=== PATIENT | male | born 1940 | race Two or more races ===

== ENCOUNTER 2016-05-18 13:18 | Outpatient (CLI) | payer MEDICARE ==
[~2016-05-18 13:18] MED LIST: ATOR10TA PO; BLOO-129 IN; FERR1TAB44 PO; FOLI1TAB16 PO; INSU100V13 SQ; LEVO75TA7 PO; LIRA0.6P2 SQ; TAMS0.4C34 PO
== END 2016-05-18 23:59 | disposition home or self-care (01) ==
LOC: WOU 13:18
PROVIDERS: ATTEND Podiatrist Foot & Ankle Surgery
DX: E11.621 Type 2 diabetes mellitus with foot ulcer (principal); L97.422 Non-pressure chronic ulcer of left heel and midfoot with fat layer exposed; Z89.439 Acquired absence of unspecified foot; R26.89 Other abnormalities of gait and mobility; E11.42 Type 2 diabetes mellitus with diabetic polyneuropathy; Z85.828 Personal history of other malignant neoplasm of skin; I10 Essential (primary) hypertension; E11.51 Type 2 diabetes mellitus with diabetic peripheral angiopathy without gangrene; Z79.4 Long term (current) use of insulin
CPT/HCPCS: 11042; A6209; A6402

== ENCOUNTER 2016-05-25 14:00 | Outpatient (CLI) | payer MEDICARE | END 2016-05-25 23:59 | disposition home or self-care (01) | LOC: WOU 14:00 | PROVIDERS: ATTEND Podiatrist Foot & Ankle Surgery | DX: E11.621 Type 2 diabetes mellitus with foot ulcer (principal); I96 Gangrene, not elsewhere classified; L97.421 Non-pressure chronic ulcer of left heel and midfoot limited to breakdown of skin; E11.42 Type 2 diabetes mellitus with diabetic polyneuropathy; Z89.432 Acquired absence of left foot; L08.9 Local infection of the skin and subcutaneous tissue, unspecified; Z85.828 Personal history of other malignant neoplasm of skin; E11.51 Type 2 diabetes mellitus with diabetic peripheral angiopathy without gangrene | CPT/HCPCS: 11042; A6209; A6402 ==

== ENCOUNTER 2016-06-08 11:02 | Outpatient (CLI) | payer MEDICARE ==
[~2016-06-08 11:02] MED LIST changes: -INSU100V13 SQ; +INSU100V7 SQ
== END 2016-06-08 23:59 | disposition home or self-care (01) ==
LOC: WOU 11:02
PROVIDERS: ATTEND Podiatrist Foot & Ankle Surgery
DX: E11.621 Type 2 diabetes mellitus with foot ulcer (principal); L97.422 Non-pressure chronic ulcer of left heel and midfoot with fat layer exposed; Z89.439 Acquired absence of unspecified foot; R26.89 Other abnormalities of gait and mobility; B35.1 Tinea unguium; E11.42 Type 2 diabetes mellitus with diabetic polyneuropathy; E11.51 Type 2 diabetes mellitus with diabetic peripheral angiopathy without gangrene; I25.10 Atherosclerotic heart disease of native coronary artery without angina pectoris; Z95.1 Presence of aortocoronary bypass graft
CPT/HCPCS: 11042; A6402

== ENCOUNTER 2016-06-15 11:05 | Outpatient (CLI) | payer MEDICARE | END 2016-06-15 23:59 | disposition home or self-care (01) | LOC: WOU 11:05 | PROVIDERS: ATTEND Podiatrist Foot & Ankle Surgery | DX: E11.621 Type 2 diabetes mellitus with foot ulcer (principal); L97.422 Non-pressure chronic ulcer of left heel and midfoot with fat layer exposed; Z89.439 Acquired absence of unspecified foot; R26.89 Other abnormalities of gait and mobility; B35.1 Tinea unguium; E11.42 Type 2 diabetes mellitus with diabetic polyneuropathy; I10 Essential (primary) hypertension; Z98.62 Peripheral vascular angioplasty status; I25.10 Atherosclerotic heart disease of native coronary artery without angina pectoris; Z95.1 Presence of aortocoronary bypass graft; Z79.4 Long term (current) use of insulin | CPT/HCPCS: 11042; A6402 ==

== ENCOUNTER 2016-06-22 10:45 | Outpatient (CLI) | payer MEDICARE | END 2016-06-22 23:59 | disposition home or self-care (01) | LOC: WOU 10:45 | PROVIDERS: ATTEND Podiatrist Foot & Ankle Surgery | DX: E11.621 Type 2 diabetes mellitus with foot ulcer (principal); L97.422 Non-pressure chronic ulcer of left heel and midfoot with fat layer exposed; R26.89 Other abnormalities of gait and mobility; B35.1 Tinea unguium; E11.42 Type 2 diabetes mellitus with diabetic polyneuropathy; Z89.422 Acquired absence of other left toe(s); Z89.421 Acquired absence of other right toe(s); I10 Essential (primary) hypertension; Z83.3 Family history of diabetes mellitus; Z82.3 Family history of stroke; I25.10 Atherosclerotic heart disease of native coronary artery without angina pectoris; Z95.1 Presence of aortocoronary bypass graft; Z98.62 Peripheral vascular angioplasty status; Z79.4 Long term (current) use of insulin | CPT/HCPCS: 11042; A6402 ==

== ENCOUNTER 2016-06-29 10:59 | Outpatient (CLI) | payer MEDICARE | END 2016-06-29 23:59 | disposition home or self-care (01) | LOC: WOU 10:59 | PROVIDERS: ATTEND Podiatrist Foot & Ankle Surgery | DX: E11.621 Type 2 diabetes mellitus with foot ulcer (principal); L97.421 Non-pressure chronic ulcer of left heel and midfoot limited to breakdown of skin; E11.42 Type 2 diabetes mellitus with diabetic polyneuropathy; Z89.432 Acquired absence of left foot; E11.51 Type 2 diabetes mellitus with diabetic peripheral angiopathy without gangrene; I25.10 Atherosclerotic heart disease of native coronary artery without angina pectoris; I10 Essential (primary) hypertension; Z95.1 Presence of aortocoronary bypass graft; Z85.828 Personal history of other malignant neoplasm of skin; Z89.421 Acquired absence of other right toe(s); Z79.4 Long term (current) use of insulin | CPT/HCPCS: 11042; A6402 ==

== ENCOUNTER 2016-07-06 11:02 | Outpatient (CLI) | payer MEDICARE | END 2016-07-06 23:59 | disposition home health service (06) | LOC: WOU 11:02 | PROVIDERS: ATTEND Podiatrist Foot & Ankle Surgery | DX: E11.621 Type 2 diabetes mellitus with foot ulcer (principal); L97.529 Non-pressure chronic ulcer of other part of left foot with unspecified severity; L03.116 Cellulitis of left lower limb; E11.52 Type 2 diabetes mellitus with diabetic peripheral angiopathy with gangrene; I25.10 Atherosclerotic heart disease of native coronary artery without angina pectoris; I10 Essential (primary) hypertension; Z95.1 Presence of aortocoronary bypass graft; Z79.4 Long term (current) use of insulin; E11.42 Type 2 diabetes mellitus with diabetic polyneuropathy; Z89.432 Acquired absence of left foot; Z85.828 Personal history of other malignant neoplasm of skin | CPT/HCPCS: 11042; 87070; 87075; 87077; 87186 ×2; A6402; A6207 ==

== ENCOUNTER 2016-07-13 11:29 | Outpatient (CLI) | payer MEDICARE | END 2016-07-13 23:59 | disposition home health service (06) | LOC: WOU 11:29 | PROVIDERS: ATTEND Podiatrist Foot & Ankle Surgery | DX: E11.621 Type 2 diabetes mellitus with foot ulcer (principal); L97.521 Non-pressure chronic ulcer of other part of left foot limited to breakdown of skin; L03.116 Cellulitis of left lower limb; B96.1 Klebsiella pneumoniae [K. pneumoniae] as the cause of diseases classified elsewhere; B95.61 Methicillin susceptible Staphylococcus aureus infection as the cause of diseases classified elsewhere; B96.89 Other specified bacterial agents as the cause of diseases classified elsewhere; Z16.11 Resistance to penicillins; Z16.19 Resistance to other specified beta lactam antibiotics; E11.51 Type 2 diabetes mellitus with diabetic peripheral angiopathy without gangrene; I25.10 Atherosclerotic heart disease of native coronary artery without angina pectoris; I10 Essential (primary) hypertension; Z95.1 Presence of aortocoronary bypass graft; Z89.432 Acquired absence of left foot; Z83.3 Family history of diabetes mellitus; Z82.3 Family history of stroke; Z79.4 Long term (current) use of insulin | CPT/HCPCS: 11042; A6402 ==

== ENCOUNTER 2016-07-20 10:57 | Outpatient (CLI) | payer MEDICARE | END 2016-07-20 23:59 | disposition home health service (06) | LOC: WOU 10:57 | PROVIDERS: ATTEND Podiatrist Foot & Ankle Surgery | DX: E11.621 Type 2 diabetes mellitus with foot ulcer (principal); L97.424 Non-pressure chronic ulcer of left heel and midfoot with necrosis of bone; R26.89 Other abnormalities of gait and mobility; Z89.439 Acquired absence of unspecified foot; E11.42 Type 2 diabetes mellitus with diabetic polyneuropathy; I25.10 Atherosclerotic heart disease of native coronary artery without angina pectoris; I10 Essential (primary) hypertension; Z95.1 Presence of aortocoronary bypass graft; Z85.828 Personal history of other malignant neoplasm of skin; Z79.4 Long term (current) use of insulin | CPT/HCPCS: 11044; 87070; A6402 ×2 ==

== ENCOUNTER 2016-07-27 11:00 | Outpatient (CLI) | payer MEDICARE | END 2016-07-27 23:59 | disposition home health service (06) | LOC: WOU 11:00 | PROVIDERS: ATTEND Podiatrist Foot & Ankle Surgery | DX: E11.621 Type 2 diabetes mellitus with foot ulcer (principal); L97.523 Non-pressure chronic ulcer of other part of left foot with necrosis of muscle; E11.622 Type 2 diabetes mellitus with other skin ulcer; L97.329 Non-pressure chronic ulcer of left ankle with unspecified severity; L89.621 Pressure ulcer of left heel, stage 1; Z89.439 Acquired absence of unspecified foot; R26.89 Other abnormalities of gait and mobility; E11.42 Type 2 diabetes mellitus with diabetic polyneuropathy; I25.10 Atherosclerotic heart disease of native coronary artery without angina pectoris; I10 Essential (primary) hypertension; Z85.828 Personal history of other malignant neoplasm of skin; Z95.1 Presence of aortocoronary bypass graft; Z79.4 Long term (current) use of insulin | CPT/HCPCS: 11043; A6402 ==

== ENCOUNTER 2016-08-03 10:55 | Outpatient (CLI) | payer MEDICARE | END 2016-08-03 23:59 | disposition home health service (06) | LOC: WOU 10:55 | PROVIDERS: ATTEND Podiatrist Foot & Ankle Surgery | DX: E11.621 Type 2 diabetes mellitus with foot ulcer (principal); L97.523 Non-pressure chronic ulcer of other part of left foot with necrosis of muscle; L03.116 Cellulitis of left lower limb; E11.42 Type 2 diabetes mellitus with diabetic polyneuropathy; R26.9 Unspecified abnormalities of gait and mobility; L89.621 Pressure ulcer of left heel, stage 1; E11.622 Type 2 diabetes mellitus with other skin ulcer; L97.329 Non-pressure chronic ulcer of left ankle with unspecified severity; Z89.432 Acquired absence of left foot; I25.10 Atherosclerotic heart disease of native coronary artery without angina pectoris; Z95.1 Presence of aortocoronary bypass graft; E11.51 Type 2 diabetes mellitus with diabetic peripheral angiopathy without gangrene; E78.5 Hyperlipidemia, unspecified; Z98.49 Cataract extraction status, unspecified eye; Z85.828 Personal history of other malignant neoplasm of skin; Z79.4 Long term (current) use of insulin | CPT/HCPCS: 11043; A6402 ==

== ENCOUNTER 2016-08-10 10:50 | Outpatient (CLI) | payer MEDICARE | END 2016-08-10 23:59 | disposition home or self-care (01) | LOC: WOU 10:50 | PROVIDERS: ATTEND Podiatrist Foot & Ankle Surgery | DX: L03.116 Cellulitis of left lower limb (principal); E11.621 Type 2 diabetes mellitus with foot ulcer; L97.422 Non-pressure chronic ulcer of left heel and midfoot with fat layer exposed; L97.521 Non-pressure chronic ulcer of other part of left foot limited to breakdown of skin; L89.621 Pressure ulcer of left heel, stage 1; E11.42 Type 2 diabetes mellitus with diabetic polyneuropathy; R26.9 Unspecified abnormalities of gait and mobility; M21.962 Unspecified acquired deformity of left lower leg; Z79.4 Long term (current) use of insulin; Z79.899 Other long term (current) drug therapy | CPT/HCPCS: 11042; 11044; 87070-TC; 87186-TC; A6402 ==

== ENCOUNTER 2016-08-17 10:50 | Outpatient (CLI) | payer MEDICARE | END 2016-08-17 23:59 | disposition home health service (06) | LOC: WOU 10:50 | PROVIDERS: ATTEND Podiatrist Foot & Ankle Surgery | DX: E11.621 Type 2 diabetes mellitus with foot ulcer (principal); L97.421 Non-pressure chronic ulcer of left heel and midfoot limited to breakdown of skin; L97.524 Non-pressure chronic ulcer of other part of left foot with necrosis of bone; E11.42 Type 2 diabetes mellitus with diabetic polyneuropathy; L03.116 Cellulitis of left lower limb; R26.9 Unspecified abnormalities of gait and mobility; Z79.4 Long term (current) use of insulin; Z79.899 Other long term (current) drug therapy | CPT/HCPCS: 11042; 11044; A6402 ==

== ENCOUNTER 2016-08-24 11:06 | Outpatient (CLI) | payer MEDICARE | END 2016-08-24 23:59 | disposition home health service (06) | LOC: WOU 11:06 | PROVIDERS: ATTEND Podiatrist Foot & Ankle Surgery | DX: E11.621 Type 2 diabetes mellitus with foot ulcer (principal); L03.116 Cellulitis of left lower limb; B95.7 Other staphylococcus as the cause of diseases classified elsewhere; E11.42 Type 2 diabetes mellitus with diabetic polyneuropathy; Z89.432 Acquired absence of left foot; L89.621 Pressure ulcer of left heel, stage 1; Z98.62 Peripheral vascular angioplasty status; E11.51 Type 2 diabetes mellitus with diabetic peripheral angiopathy without gangrene; R26.9 Unspecified abnormalities of gait and mobility; L97.524 Non-pressure chronic ulcer of other part of left foot with necrosis of bone | CPT/HCPCS: 11044; 11045; A6402 ==

== ENCOUNTER 2016-09-07 11:33 | Outpatient (CLI) | payer MEDICARE | END 2016-09-07 23:59 | disposition home health service (06) | LOC: WOU 11:33 | PROVIDERS: ATTEND Podiatrist Foot & Ankle Surgery | DX: E11.621 Type 2 diabetes mellitus with foot ulcer (principal); L97.524 Non-pressure chronic ulcer of other part of left foot with necrosis of bone; L89.621 Pressure ulcer of left heel, stage 1; E11.52 Type 2 diabetes mellitus with diabetic peripheral angiopathy with gangrene; E11.42 Type 2 diabetes mellitus with diabetic polyneuropathy; Z83.3 Family history of diabetes mellitus; Z85.828 Personal history of other malignant neoplasm of skin; I25.10 Atherosclerotic heart disease of native coronary artery without angina pectoris; I10 Essential (primary) hypertension; Z95.1 Presence of aortocoronary bypass graft; Z89.422 Acquired absence of other left toe(s); Z89.421 Acquired absence of other right toe(s); I70.345 Atherosclerosis of unspecified type of bypass graft(s) of the left leg with ulceration of other part of foot; I70.92 Chronic total occlusion of artery of the extremities | CPT/HCPCS: 11044; 87070; 87077; 87186; 93926; A6402; 93925-TC ==

== ENCOUNTER 2016-09-17 11:50 | Outpatient (CLI) | payer MEDICARE | END 2016-09-17 23:59 | disposition home health service (06) | LOC: WOU 11:50 | PROVIDERS: ATTEND Podiatrist Foot & Ankle Surgery | DX: E11.621 Type 2 diabetes mellitus with foot ulcer (principal); L97.523 Non-pressure chronic ulcer of other part of left foot with necrosis of muscle; E11.52 Type 2 diabetes mellitus with diabetic peripheral angiopathy with gangrene; L89.621 Pressure ulcer of left heel, stage 1; E11.42 Type 2 diabetes mellitus with diabetic polyneuropathy; Z89.432 Acquired absence of left foot; T87.89 Other complications of amputation stump; Z79.4 Long term (current) use of insulin | CPT/HCPCS: 11043; A6402 ==

== ENCOUNTER 2016-09-28 11:50 | Outpatient (CLI) | payer MEDICARE | END 2016-09-28 23:59 | disposition home health service (06) | LOC: WOU 11:50 | PROVIDERS: ATTEND Podiatrist Foot & Ankle Surgery | DX: L97.524 Non-pressure chronic ulcer of other part of left foot with necrosis of bone (principal); E11.52 Type 2 diabetes mellitus with diabetic peripheral angiopathy with gangrene; Z79.01 Long term (current) use of anticoagulants; E11.40 Type 2 diabetes mellitus with diabetic neuropathy, unspecified; Z89.432 Acquired absence of left foot; R26.9 Unspecified abnormalities of gait and mobility; E11.69 Type 2 diabetes mellitus with other specified complication; M86.672 Other chronic osteomyelitis, left ankle and foot; L89.621 Pressure ulcer of left heel, stage 1; I74.3 Embolism and thrombosis of arteries of the lower extremities | CPT/HCPCS: 11042; 11044; 11047; A6402 ==

== ENCOUNTER 2016-09-29 13:11 | Outpatient (CLI) | payer MEDICARE | END 2016-09-29 23:59 | disposition home health service (06) | LOC: WOU 13:11 | PROVIDERS: ATTEND Specialist | DX: L89.894 Pressure ulcer of other site, stage 4 (principal); E11.52 Type 2 diabetes mellitus with diabetic peripheral angiopathy with gangrene; E11.42 Type 2 diabetes mellitus with diabetic polyneuropathy; Z89.432 Acquired absence of left foot; B35.1 Tinea unguium; E11.69 Type 2 diabetes mellitus with other specified complication; M86.371 Chronic multifocal osteomyelitis, right ankle and foot; L03.116 Cellulitis of left lower limb; R26.89 Other abnormalities of gait and mobility; L97.422 Non-pressure chronic ulcer of left heel and midfoot with fat layer exposed; Z79.4 Long term (current) use of insulin; Z79.899 Other long term (current) drug therapy | CPT/HCPCS: 73718-TC; A6402; G0463 ==

== ENCOUNTER 2016-10-12 13:46 | Outpatient (CLI) | payer MEDICARE | END 2016-10-12 23:59 | disposition home or self-care (01) | LOC: WOU 13:46 | PROVIDERS: ATTEND Internal Medicine Infectious Disease | DX: E11.51 Type 2 diabetes mellitus with diabetic peripheral angiopathy without gangrene (principal); E11.69 Type 2 diabetes mellitus with other specified complication; M86.172 Other acute osteomyelitis, left ankle and foot; B95.7 Other staphylococcus as the cause of diseases classified elsewhere; M86.672 Other chronic osteomyelitis, left ankle and foot; T87.44 Infection of amputation stump, left lower extremity; I25.2 Old myocardial infarction; Z85.828 Personal history of other malignant neoplasm of skin; I25.10 Atherosclerotic heart disease of native coronary artery without angina pectoris; Z95.1 Presence of aortocoronary bypass graft; Z89.432 Acquired absence of left foot | CPT/HCPCS: A6402; G0463 ==

== ENCOUNTER 2016-10-13 14:15 | Outpatient (CLI) | payer MEDICARE | END 2016-10-13 23:59 | disposition home or self-care (01) | LOC: WOU 14:15 | PROVIDERS: ATTEND Internal Medicine Infectious Disease | DX: E11.69 Type 2 diabetes mellitus with other specified complication (principal); M86.8X7 Other osteomyelitis, ankle and foot; I25.10 Atherosclerotic heart disease of native coronary artery without angina pectoris; I12.9 Hypertensive chronic kidney disease with stage 1 through stage 4 chronic kidney disease, or unspecified chronic kidney disease; N18.9 Chronic kidney disease, unspecified; Z95.1 Presence of aortocoronary bypass graft; I25.2 Old myocardial infarction; I73.9 Peripheral vascular disease, unspecified; Z79.4 Long term (current) use of insulin | CPT/HCPCS: 36569; C1751 ==

== ENCOUNTER 2016-10-15 14:26 | Outpatient (CLI) | payer MEDICARE | END 2016-10-15 23:59 | disposition home health service (06) | LOC: WOU 14:26 | PROVIDERS: ATTEND Podiatrist Foot & Ankle Surgery | DX: E11.52 Type 2 diabetes mellitus with diabetic peripheral angiopathy with gangrene (principal); E11.40 Type 2 diabetes mellitus with diabetic neuropathy, unspecified; E11.621 Type 2 diabetes mellitus with foot ulcer; L97.524 Non-pressure chronic ulcer of other part of left foot with necrosis of bone; Z89.432 Acquired absence of left foot; L89.624 Pressure ulcer of left heel, stage 4; E11.69 Type 2 diabetes mellitus with other specified complication; M86.372 Chronic multifocal osteomyelitis, left ankle and foot; R26.9 Unspecified abnormalities of gait and mobility; Z79.4 Long term (current) use of insulin | CPT/HCPCS: 11044; 11047; A6402 ==

== ENCOUNTER 2016-10-19 11:32 | Outpatient (CLI) | payer MEDICARE | END 2016-10-19 23:59 | disposition home health service (06) | LOC: WOU 11:32 | PROVIDERS: ATTEND Podiatrist Foot & Ankle Surgery | DX: E11.621 Type 2 diabetes mellitus with foot ulcer (principal); L97.424 Non-pressure chronic ulcer of left heel and midfoot with necrosis of bone; L89.624 Pressure ulcer of left heel, stage 4; E11.52 Type 2 diabetes mellitus with diabetic peripheral angiopathy with gangrene; E11.69 Type 2 diabetes mellitus with other specified complication; M86.372 Chronic multifocal osteomyelitis, left ankle and foot; B35.1 Tinea unguium; R26.89 Other abnormalities of gait and mobility; Z89.432 Acquired absence of left foot; Z85.828 Personal history of other malignant neoplasm of skin; Z83.3 Family history of diabetes mellitus; Z82.3 Family history of stroke | CPT/HCPCS: 11042; 11044; 11047; A6402 ==

== ENCOUNTER 2016-10-26 12:28 | Outpatient (CLI) | payer MEDICARE | END 2016-10-26 23:59 | disposition home or self-care (01) | LOC: WOU 12:28 | PROVIDERS: ATTEND Podiatrist Foot & Ankle Surgery | DX: E11.52 Type 2 diabetes mellitus with diabetic peripheral angiopathy with gangrene (principal); L89.624 Pressure ulcer of left heel, stage 4; E11.621 Type 2 diabetes mellitus with foot ulcer; E11.69 Type 2 diabetes mellitus with other specified complication; M86.672 Other chronic osteomyelitis, left ankle and foot; I25.10 Atherosclerotic heart disease of native coronary artery without angina pectoris; Z95.1 Presence of aortocoronary bypass graft; I10 Essential (primary) hypertension; Z85.828 Personal history of other malignant neoplasm of skin; Z89.422 Acquired absence of other left toe(s); Z89.421 Acquired absence of other right toe(s) | CPT/HCPCS: 11043; 11044; 11047; A6402 ==

== ENCOUNTER 2016-11-02 13:45 | Outpatient (CLI) | payer MEDICARE | END 2016-11-02 23:59 | disposition home or self-care (01) | LOC: WOU 13:45 | PROVIDERS: ATTEND Podiatrist Foot & Ankle Surgery | DX: L89.624 Pressure ulcer of left heel, stage 4 (principal); E11.621 Type 2 diabetes mellitus with foot ulcer; L97.524 Non-pressure chronic ulcer of other part of left foot with necrosis of bone; E11.51 Type 2 diabetes mellitus with diabetic peripheral angiopathy without gangrene; E11.69 Type 2 diabetes mellitus with other specified complication; M86.372 Chronic multifocal osteomyelitis, left ankle and foot; E11.40 Type 2 diabetes mellitus with diabetic neuropathy, unspecified; Z79.4 Long term (current) use of insulin; I25.10 Atherosclerotic heart disease of native coronary artery without angina pectoris; Z95.1 Presence of aortocoronary bypass graft; Z83.3 Family history of diabetes mellitus; Z82.3 Family history of stroke | CPT/HCPCS: 11042; 11044; A6402 ==

== ENCOUNTER 2016-11-10 13:40 | Outpatient (CLI) | payer MEDICARE | END 2016-11-10 23:59 | disposition home or self-care (01) | LOC: WOU 13:40 | PROVIDERS: ATTEND Podiatrist Foot & Ankle Surgery | DX: E11.621 Type 2 diabetes mellitus with foot ulcer (principal); L97.522 Non-pressure chronic ulcer of other part of left foot with fat layer exposed; L89.624 Pressure ulcer of left heel, stage 4; E11.42 Type 2 diabetes mellitus with diabetic polyneuropathy; L30.9 Dermatitis, unspecified; E11.69 Type 2 diabetes mellitus with other specified complication; M86.672 Other chronic osteomyelitis, left ankle and foot; Z89.432 Acquired absence of left foot; Z85.828 Personal history of other malignant neoplasm of skin | CPT/HCPCS: 11042; 11045; 82962; A6402 ==

== ENCOUNTER 2016-11-17 13:41 | Outpatient (CLI) | payer MEDICARE | END 2016-11-17 23:59 | disposition home or self-care (01) | LOC: WOU 13:41 | PROVIDERS: ATTEND Podiatrist Foot & Ankle Surgery | DX: L89.624 Pressure ulcer of left heel, stage 4 (principal); E11.621 Type 2 diabetes mellitus with foot ulcer; L97.522 Non-pressure chronic ulcer of other part of left foot with fat layer exposed; E11.51 Type 2 diabetes mellitus with diabetic peripheral angiopathy without gangrene; E11.42 Type 2 diabetes mellitus with diabetic polyneuropathy; E11.69 Type 2 diabetes mellitus with other specified complication; M86.672 Other chronic osteomyelitis, left ankle and foot; Z89.432 Acquired absence of left foot | CPT/HCPCS: 11042; 11045; A6402 ==

== ENCOUNTER 2016-11-23 11:15 | Outpatient (CLI) | payer MEDICARE | END 2016-11-23 23:59 | disposition home or self-care (01) | LOC: WOU 11:15 | PROVIDERS: ATTEND Podiatrist Foot & Ankle Surgery | DX: L89.624 Pressure ulcer of left heel, stage 4 (principal); E11.621 Type 2 diabetes mellitus with foot ulcer; L97.424 Non-pressure chronic ulcer of left heel and midfoot with necrosis of bone; E11.52 Type 2 diabetes mellitus with diabetic peripheral angiopathy with gangrene; E11.42 Type 2 diabetes mellitus with diabetic polyneuropathy; Z79.2 Long term (current) use of antibiotics; I25.10 Atherosclerotic heart disease of native coronary artery without angina pectoris; Z79.4 Long term (current) use of insulin; Z79.899 Other long term (current) drug therapy | CPT/HCPCS: 11042; 11044; 11047; A6209; A6402 ==

== ENCOUNTER 2016-11-30 11:23 | Outpatient (CLI) | payer MEDICARE | END 2016-11-30 23:59 | disposition home or self-care (01) | LOC: WOU 11:23 | PROVIDERS: ATTEND Podiatrist Foot & Ankle Surgery | DX: L89.624 Pressure ulcer of left heel, stage 4 (principal); E11.621 Type 2 diabetes mellitus with foot ulcer; L97.529 Non-pressure chronic ulcer of other part of left foot with unspecified severity; E11.69 Type 2 diabetes mellitus with other specified complication; M86.672 Other chronic osteomyelitis, left ankle and foot; R60.0 Localized edema; L29.9 Pruritus, unspecified; Z89.432 Acquired absence of left foot | CPT/HCPCS: 11042; 11043; 11045; A6209; A6402 ==

== ENCOUNTER 2016-12-07 10:53 | Outpatient (CLI) | payer MEDICARE | END 2016-12-07 23:59 | disposition home or self-care (01) | LOC: WOU 10:53 | PROVIDERS: ATTEND Podiatrist Foot & Ankle Surgery | DX: L97.522 Non-pressure chronic ulcer of other part of left foot with fat layer exposed (principal); E11.42 Type 2 diabetes mellitus with diabetic polyneuropathy; Z89.432 Acquired absence of left foot; E11.69 Type 2 diabetes mellitus with other specified complication; M86.9 Osteomyelitis, unspecified; R60.0 Localized edema; T87.54 Necrosis of amputation stump, left lower extremity; L97.423 Non-pressure chronic ulcer of left heel and midfoot with necrosis of muscle | CPT/HCPCS: 11042; 11043; 11045; A6209; A6402 ==

== ENCOUNTER 2016-12-08 08:31 | Outpatient (CLI) | payer MEDICARE | END 2016-12-08 23:59 | disposition home or self-care (01) | LOC: MRI 08:31 | PROVIDERS: ATTEND Podiatrist Foot & Ankle Surgery | DX: M89.8X7 Other specified disorders of bone, ankle and foot (principal); M62.572 Muscle wasting and atrophy, not elsewhere classified, left ankle and foot; M76.62 Achilles tendinitis, left leg; M85.672 Other cyst of bone, left ankle and foot; Z89.432 Acquired absence of left foot | CPT/HCPCS: 73718-TC ==

== ENCOUNTER → 2016-12-14 | Outpatient (CLI) | payer MEDICARE | END | disposition home or self-care (01) | LOC: WOU 12:55 | PROVIDERS: ATTEND Podiatrist Foot & Ankle Surgery | DX: L89.624 Pressure ulcer of left heel, stage 4 (principal); E11.621 Type 2 diabetes mellitus with foot ulcer; L97.524 Non-pressure chronic ulcer of other part of left foot with necrosis of bone; E11.51 Type 2 diabetes mellitus with diabetic peripheral angiopathy without gangrene; Z89.432 Acquired absence of left foot; E11.42 Type 2 diabetes mellitus with diabetic polyneuropathy; M86.9 Osteomyelitis, unspecified; E11.69 Type 2 diabetes mellitus with other specified complication | CPT/HCPCS: 11043; 11044; 11047; 87070; 87075; 87077; 87186; A6209; A6402 ×2; G0463 ==

== ENCOUNTER 2016-12-16 14:43 | Outpatient (CLI) | payer MEDICARE ==
[2016-12-16] MEDS ORDERED: TRIAMCINOLONE ACETONIDE 0.1% CR 15 GM TUBE TP PRN (16:30)
== END 2016-12-16 23:59 | disposition home or self-care (01) ==
LOC: WOU 14:43
PROVIDERS: ATTEND Podiatrist Foot & Ankle Surgery
DX: M86.8X7 Other osteomyelitis, ankle and foot (principal); J98.11 Atelectasis
CPT/HCPCS: 71010; C1751; 36569

== ENCOUNTER 2016-12-21 12:55 | Outpatient (CLI) | payer MEDICARE | END 2016-12-21 23:59 | disposition home or self-care (01) | LOC: WOU 12:55 | PROVIDERS: ATTEND Podiatrist Foot & Ankle Surgery | DX: E11.621 Type 2 diabetes mellitus with foot ulcer (principal); L97.423 Non-pressure chronic ulcer of left heel and midfoot with necrosis of muscle; E11.42 Type 2 diabetes mellitus with diabetic polyneuropathy; T87.54 Necrosis of amputation stump, left lower extremity; E11.69 Type 2 diabetes mellitus with other specified complication; M86.8X7 Other osteomyelitis, ankle and foot; B96.5 Pseudomonas (aeruginosa) (mallei) (pseudomallei) as the cause of diseases classified elsewhere; Z79.4 Long term (current) use of insulin; Z79.899 Other long term (current) drug therapy | CPT/HCPCS: 11043; 11046; A6209; A6402 ==

== ENCOUNTER 2016-12-28 12:45 | Outpatient (CLI) | payer MEDICARE | END 2016-12-28 23:59 | disposition home or self-care (01) | LOC: WOU 12:45 | PROVIDERS: ATTEND Podiatrist Foot & Ankle Surgery | DX: E11.621 Type 2 diabetes mellitus with foot ulcer (principal); L97.423 Non-pressure chronic ulcer of left heel and midfoot with necrosis of muscle; E11.42 Type 2 diabetes mellitus with diabetic polyneuropathy; E11.69 Type 2 diabetes mellitus with other specified complication; B96.5 Pseudomonas (aeruginosa) (mallei) (pseudomallei) as the cause of diseases classified elsewhere; Z79.4 Long term (current) use of insulin; Z79.899 Other long term (current) drug therapy; M86.372 Chronic multifocal osteomyelitis, left ankle and foot; S41.111D Laceration without foreign body of right upper arm, subsequent encounter; X58.XXXD Exposure to other specified factors, subsequent encounter; Z89.432 Acquired absence of left foot | CPT/HCPCS: 11043; A6209; A6402 ==

== ENCOUNTER 2017-01-05 13:10 | Outpatient (CLI) | payer MEDICARE ==
[2017-01-05] MEDS ORDERED: METO100T3 PO (17:00)
[2017-01-05] MEDS ORDERED: ASPI81TA2 PO (17:00)
[2017-01-05] MEDS ORDERED: INSU100V27 SQ (17:00)
[2017-01-05] MEDS ORDERED: LEVO88TA5 PO (17:00)
[2017-01-05] MEDS ORDERED: PANT40TA4 PO (17:00)
[2017-01-05] MEDS ORDERED: FURO40TA5 PO (17:00)
[2017-01-05] MEDS ORDERED: APIX5TAB PO (17:00)
[2017-01-05] MEDS ORDERED: HYDR-4077 PO (17:00)
[2017-01-05] MEDS ORDERED: LIRA0.6P SQ (17:00)
[2017-01-05] MEDS ORDERED: CITA20SO PO (17:00)
[2017-01-05] MEDS ORDERED: VIT1CAPS27 PO (17:00)
[2017-01-05] MEDS ORDERED: ERGO400T3 PO (17:04)
[2017-01-05] MEDS ORDERED: VIT1CAPS44 PO (17:18)
[2017-01-05] MEDS ORDERED: LIRA0.6P2 SQ (17:18)
[2017-01-05] MEDS ORDERED: FINA5TAB11 PO (17:19)
[2017-01-07] MEDS ORDERED: LORA10TA7 PO (11:19)
[2017-01-07] MEDS ORDERED: DIPH25CA49 PO (11:19)
[2017-01-07] MEDS ORDERED: GENT30OI2 TP (11:19)
[2017-01-07] MEDS ORDERED: METH4TAB16 PO (11:19)
[2017-01-07] MEDS ORDERED: FAMO-131 PO (11:19)
== END 2017-01-05 23:59 | disposition home or self-care (01) ==
LOC: WOU 13:10
PROVIDERS: ATTEND Podiatrist Foot & Ankle Surgery
DX: E11.621 Type 2 diabetes mellitus with foot ulcer (principal); L97.421 Non-pressure chronic ulcer of left heel and midfoot limited to breakdown of skin; L97.524 Non-pressure chronic ulcer of other part of left foot with necrosis of bone; Z89.432 Acquired absence of left foot; E11.69 Type 2 diabetes mellitus with other specified complication; M86.372 Chronic multifocal osteomyelitis, left ankle and foot; B96.5 Pseudomonas (aeruginosa) (mallei) (pseudomallei) as the cause of diseases classified elsewhere; E11.42 Type 2 diabetes mellitus with diabetic polyneuropathy; R60.0 Localized edema; L30.9 Dermatitis, unspecified; R21 Rash and other nonspecific skin eruption; Z79.4 Long term (current) use of insulin
CPT/HCPCS: A6209; A6402; G0463

== ENCOUNTER 2017-01-05 14:20 | Inpatient (IN) | payer MEDICARE ==
[~2017-01-05] VITALS: Ht 175.3 cm; Wt 103.4 kg
--- NOTE | 2017-01-05 14:25 | NUR ---
AAOX3, C/O GENERALIZED BLISTERS S/P ANTIBIOTIC IV (VANCOMYCIN AND ROCEPHIN) INFUSION AT HOME. THE IV ANTIBIOTIC WAS CHANGED TO LEVAQUIN SOMEHOW THE BLISTERS ARE GETTING WORSE. SKIN IS WARM AND DRY. RESP IS EVEN AND UNLABORED WITH NAD NOTED. DR GUTIERREZ AT FOR EVAL.
[2017-01-05 15:43] LABS: BASOPHILS % (AUTO) 0.1 % (0.0-2.0); EOSINOPHILS # (AUTO) 14.3 /CMM (0.0-0.7); HEMATOCRIT 35 % (39-51); HEMOGLOBIN 11.4 g/dL (13.5-17.5); LYMPHOCYTES # (AUTO) 1.5 /CMM (0.8-4.8); LYMPHOCYTES % (AUTO) 5.5 % (20.0-44.0); MEAN CORPUSCULAR HEMOGLOBIN 29 PG (26.0-33.0); MEAN CORPUSCULAR HGB CONC 33 g/dl (31.0-36.0); MEAN CORPUSCULAR VOLUME 88 fL (80-96); MONOCYTES # (AUTO) 1.4 /CMM (0.1-1.30); MONOCYTES % (AUTO) 5.1 % (2.0-12.0); NEUTROPHILS # (AUTO) 10.1 /CMM (1.8-8.9); NEUTROPHILS % (AUTO) 36.9 % (43.0-81.0); PLATELET COUNT (AUTO) 244 /CMM (150-450); RDW COEFFICIENT OF VARIATION 18.8 (11.5-15.0); RED BLOOD CELL COUNT(AUTO) 3.93 MIL/uL (4.5-6.0); WHITE BLOOD COUNT (AUTO) 27.4 K/uL (4.3-11.0)
[2017-01-05 15:47] LABS: EOSINOPHILS % (AUTO) 52.4 % (0.0-6.0)
[2017-01-05 15:56] LABS: TROPONIN I < 0.017 ng/mL (0.00-0.056)
[2017-01-05 15:57] LABS: INR 1.09 (0.87-1.13); PROTHROMBIN TIME 11.7 SECS (9.5-12.7)
[2017-01-05] MEDS ORDERED: methylPREDNISolone SOD SUCC 125 MG/2ML VIAL IV ONE (16:00)
[2017-01-05] MEDS ORDERED: diphenhydrAMINE HCL 50 MG/ML VIAL IV ONE (16:00)
[2017-01-05] MEDS ORDERED: FAMOTIDINE/PF INJ 20 MG/2 ML VIAL IV ONE ×2 (16:00→16:09)
[2017-01-05 16:03] LABS: ALANINE AMINOTRANSFERASE 18 U/L (12-78); ALBUMIN 2.5 g/dL (3.4-5.0); ALKALINE PHOSPHATASE 62 U/L (46-116); ASPARTATE AMINOTRANSFERASE 15 U/L (15-37); BILIRUBIN,DIRECT 0.1 mg/dL (0.0-0.2); BILIRUBIN,TOTAL 0.3 mg/dL (0.2-1.0); CALCIUM, SERUM 8.6 mg/dL (8.5-10.1); CARBON DIOXIDE 26 mmol/L (21-32); CHLORIDE 103 mmol/L (98-107); CREATININE 3.1 mg/dL (0.6-1.3); GLUCOSE 307 mg/dL (74-106); POTASSIUM 4.2 mmol/L (3.5-5.1); SODIUM SERUM 138 mmol/L (136-145); TOTAL PROTEIN, SERUM 5.8 g/dL (6.4-8.2)
[2017-01-05 16:05] LABS: UREA NITROGEN, BLOOD 84 mg/dL (7-18)
[2017-01-05] MEDS ORDERED: diphenhydrAMINE HCL 50 MG/ML VIAL ONE (16:08)
[2017-01-05] MEDS ORDERED: methylPREDNISolone SOD SUCC 125 MG/2ML VIAL ONE (16:09)
--- NOTE | 2017-01-05 16:45 | NUR ---
PANEL ON-CALL PAGED
[2017-01-05 16:51] LABS: BAND % (MANUAL) 8 % (0.0-5.0); EOSINOPHILS % (MANUAL) 45 % (0-4); LYMPHOCYTES % (MANUAL) 9 % (16-48); MONOCYTES % (MANUAL) 6 % (0-11.0); NEUTROPHILS % (MANUAL) 32 (42-76)
--- NOTE | 2017-01-05 16:57 | NUR ---
REPORT GIVEN TO MARIYA SERNA FOR NERY RM 308
[2017-01-05] MEDS ORDERED: IV NS 0.9% 500 ML BAG IV ONE (17:00)
[2017-01-05] MEDS ORDERED: CITA20SO PO (17:00)
[2017-01-05] MEDS ORDERED: FURO40TA5 PO (17:00)
[2017-01-05] MEDS ORDERED: HYDR-4077 PO (17:00)
[2017-01-05] MEDS ORDERED: LEVO88TA5 PO (17:00)
[2017-01-05] MEDS ORDERED: ASPI81TA2 PO (17:00)
[2017-01-05] MEDS ORDERED: INSU100V27 SQ (17:00)
[2017-01-05] MEDS ORDERED: VIT1CAPS27 PO (17:00)
[2017-01-05] MEDS ORDERED: LIRA0.6P SQ (17:00)
[2017-01-05] MEDS ORDERED: METO100T3 PO (17:00)
[2017-01-05] MEDS ORDERED: PANT40TA4 PO (17:00)
[2017-01-05] MEDS ORDERED: APIX5TAB PO (17:00)
[2017-01-05] MEDS ORDERED: ERGO400T3 PO (17:04)
[2017-01-05] MEDS ORDERED: LIRA0.6P2 SQ (17:18)
[2017-01-05] MEDS ORDERED: VIT1CAPS44 PO (17:18)
[2017-01-05] MEDS ORDERED: FINA5TAB11 PO (17:19)
--- NOTE | 2017-01-05 17:40 | NUR ---
MS RN NOTES RECEIVED PATIENT VIA GURNEY NOTED PATIENT AMBULATING TO BED WITH SOME ASSISTANCE. PATIENT ORIENTED TO ROOM , BED IN LOW LOCKED POSITION. BED IN LOW LOCKED POSITION. NOTED WITH GENERALIZED RASH AND BLISTERS. PATIENT WITH PERIPHERAL IV ON LEFT HAND, INTACT PATENT. PATIENTS DAUGHTER REFUSED FOR SN TO REMOVE DRESSING ON LEFT FOOT STATING DR. DEL VALLE JUST PLACED IT THIS MORNING. WILL CONTINUE TO MONITOR.
--- NOTE | 2017-01-05 19:30 | NUR ---
MS RN NOTES PATIENT IN BED RESTING NO SOB OR ACUTE DISTRESS NOTED. CONFIRMED WITH DR. LISANDRA LOVELL TO CHANGE DRESSING WITH HIS ORDERS ENDORSED TO PM SHIFT KAILYN. PATIENT IN STABLE CONDITION WILL ENDORSE CARE TO PM SHIFT KAILYN.
[2017-01-05 20:00] VITALS: BP 111/51
[2017-01-05] MEDS ORDERED: ACETAMINOPHEN 325 MG TABLET PO PRN (20:00)
[2017-01-05] MEDS ORDERED: MAGNESIUM HYDROXIDE 30 ML UDC PO PRN (20:00)
[2017-01-05] MEDS ORDERED: diphenhydrAMINE HCL 25 MG CAPSULE PO PRN (20:00)
[2017-01-05] MEDS ORDERED: IV NS 0.9% 1,000 ML IV PRN (20:00)
[2017-01-05] MEDS ORDERED: HYDROCODONE/APAP 5/325MG 1 EACH TABLET PO PRN (20:00)
[2017-01-05] MEDS ORDERED: ONDANSETRON HCL/PF 4 MG/2 ML VIAL IVP PRN (20:00)
[2017-01-05] MEDS ORDERED: MAG HYDROX/AL HYDROX/SIMETH 30 ML UDC PO PRN (20:00)
[2017-01-05] MEDS ORDERED: ZOLPIDEM TARTRATE 5 MG TABLET PO PRN (20:00)
[2017-01-05] MEDS: LORATADINE 10 MG TABLET PO SCH (20:49)
[2017-01-05] MEDS: FAMOTIDINE/PF INJ 20 MG/2 ML VIAL IV SCH (20:50)
[2017-01-05] MEDS ORDERED: HEPARIN SODIUM, PORCINE 5000 UNITS/1 ML VIAL SQ SCH (21:00)
[2017-01-05] MEDS ORDERED: DEXTROSE 50%-WATER 50 ML DISP.SYRIN IV PRN (21:00)
[2017-01-05 21:27] LABS: APPEARANCE,URINE CLEAR (CLEAR); BILIRUBIN,URINE NEGATIVE (NEGATIVE); BLOOD, URINE NEGATIVE Ery/uL (NEGATIVE); COLOR,URINE YELLOW (YELLOW); KETONES,URINE NEGATIVE (NEGATIVE); LEUKOCYTE ESTERASE ,URINE NEGATIVE (NEGATIVE); NITRITE, URINE NEGATIVE (NEGATIVE); PH,URINE 5.5 (5.0-8.0); PROTEIN,URINE NEGATIVE (NEGATIVE); UGLUCOSE NEGATIVE (NEGATIVE); UROBILINOGEN,URINE 0.2 EU/dL (0.2)
[2017-01-05] MEDS ORDERED: ATORVASTATIN 10 MG TABLET ONE (22:32)
[2017-01-05] MEDS: ATORVASTATIN 10 MG TABLET PO SCH (23:14)
[2017-01-05] MEDS: BLOOD SUGAR DIAGNOSTIC 1 EACH STRIP IN SCH (23:14)
[2017-01-05] MEDS: INSULIN REGULAR, HUMAN 100 UNIT/ML 3 ML VIAL SQ PRN (23:18)
[2017-01-06] MEDS ORDERED: INSULIN REGULAR, HUMAN 100 UNIT/ML 3 ML VIAL ONE (05:25)
[2017-01-06] MEDS: BLOOD SUGAR DIAGNOSTIC 1 EACH STRIP IN SCH ×4 (06:44→21:42)
--- NOTE | 2017-01-06 06:44 | NUR ---
WOUND CARE CONSULT WOUND CARE RECEIVED CONSULT. PATIENT MEDICAL RECORD REVIEWED. PATIENT WITH EVI AT 20, WOUND CARE WILL DEFER TO DR VAUGHN AND ID/PRIMARY TEAM AT THIS TIME.
[2017-01-06] MEDS: INSULIN REGULAR, HUMAN 100 UNIT/ML 3 ML VIAL SQ PRN ×3 (06:45→17:37)
--- NOTE | 2017-01-06 07:00 | NUR ---
MS/RN PATIENT AWAKE AT THIS TIME, BLOOD SUGAR AT 0635 WAS 324, HUMULIN INSULIN 8 UNITS WAS GIVEN ORDERED, NO S/S OF HYPERGLYCEMIA, HAD AN ON AND OFF SLEEP THE WHOLE NIGHT, ALL NEEDS ATTENDED AT THIS TIME. WILL CONTINUE TO MONITOR.
[2017-01-06 07:19] LABS: EOSINOPHILS # (AUTO) 0.1 /CMM (0.0-0.7); EOSINOPHILS % (AUTO) 1.3 % (0.0-6.0); HEMATOCRIT 30 % (39-51); HEMOGLOBIN 9.8 g/dL (13.5-17.5); LYMPHOCYTES # (AUTO) 0.7 /CMM (0.8-4.8); MEAN CORPUSCULAR HEMOGLOBIN 29 PG (26.0-33.0); MEAN CORPUSCULAR HGB CONC 33 g/dl (31.0-36.0); MEAN CORPUSCULAR VOLUME 88 fL (80-96); MONOCYTES # (AUTO) 0.5 /CMM (0.1-1.30); MONOCYTES % (AUTO) 4.9 % (2.0-12.0); NEUTROPHILS # (AUTO) 9.2 /CMM (1.8-8.9); NEUTROPHILS % (AUTO) 86.8 % (43.0-81.0); PLATELET COUNT (AUTO) 218 /CMM (150-450); RDW COEFFICIENT OF VARIATION 19.1 (11.5-15.0); RED BLOOD CELL COUNT(AUTO) 3.39 MIL/uL (4.5-6.0); WHITE BLOOD COUNT (AUTO) 10.6 K/uL (4.3-11.0)
[2017-01-06 07:31] LABS: CHOLESTEROL 93 mg/dL (<200); HDL CHOLESTEROL 31 mg/dL (40-60); LDL 51 mg/dL (0-99); TRIGLYCERIDES 111 mg/dL (30-150)
[2017-01-06 07:43] LABS: CALCIUM, SERUM 8.7 mg/dL (8.5-10.1); CARBON DIOXIDE 25 mmol/L (21-32); CHLORIDE 102 mmol/L (98-107); CREATININE 2.7 mg/dL (0.6-1.3); GLUCOSE 343 mg/dL (74-106); MAGNESIUM 2.1 mg/dL (1.8-2.4); PHOSPHORUS 4.1 mg/dL (2.5-4.9); POTASSIUM 4.4 mmol/L (3.5-5.1); SODIUM SERUM 138 mmol/L (136-145); UREA NITROGEN, BLOOD 73 mg/dL (7-18)
[2017-01-06 08:00] VITALS: BP 120/56
--- NOTE | 2017-01-06 08:00 | NUR ---
MS RN NOTES PATIENT AWAKE, LAYING IN BED COMFORTABLY. NO ACUTE DISTRESS/ SOB NOTED. NO COMPLAIN OF PAIN AT THIS TIME. PERIPHERAL LINE ON RFA, INTACT PATENT. BED IN LOW LOCKED POSITION. CALL LIGHT WITHIN REACH. WILL CONTINUE TO MONITOR.
[2017-01-06] MEDS ORDERED: FUROSEMIDE 40 MG TABLET PO SCH (09:00)
[2017-01-06] MEDS ORDERED: LIRAGLUTIDE 1.2 MG SQ SCH (09:00)
[2017-01-06] MEDS ORDERED: APIXABAN 5 MG TABLET PO SCH (09:00)
[2017-01-06] MEDS: FERROUS SULFATE (325 MG) 325 MG/TAB TABLET PO SCH (09:16)
[2017-01-06] MEDS: PANTOPRAZOLE 40 MG TABLET.DR PO SCH (09:17)
[2017-01-06] MEDS: FINASTERIDE (5 MG) 5 MG TABLET PO SCH (09:18)
[2017-01-06] MEDS: LORATADINE 10 MG TABLET PO SCH (09:18)
[2017-01-06] MEDS: CITALOPRAM HYDROBROMIDE 20 MG TABLET PO SCH (09:19)
[2017-01-06] MEDS: methylPREDNISolone SOD SUCC 40 MG/ML VIAL IV SCH ×3 (09:20→17:26)
[2017-01-06] MEDS: TAMSULOSIN 0.4 MG CAP.SR.24H PO SCH (09:20)
[2017-01-06] MEDS: FAMOTIDINE/PF INJ 20 MG/2 ML VIAL IV SCH ×2 (09:20→21:43)
[2017-01-06] MEDS: hydrALAZINE HCL 50 MG TABLET PO SCH ×3 (09:26→17:27)
[2017-01-06] MEDS: GENTAMICIN 0.1% OINT 15 GM TUBE TP SCH ×2 (09:33→17:28)
[2017-01-06] MEDS: DAKINS QUARTER STRENGTH (0.125%) 480 ML BOTTLE TOP SCH (09:33)
[2017-01-06] MEDS: LEVOTHYROXINE SODIUM 88 MCG TABLET PO SCH (09:40)
[2017-01-06] MEDS: CHOLECALCIFEROL (VITAMIN D 3) 400 UNIT TABLET PO SCH ×2 (09:40→10:05)
[2017-01-06] MEDS: MULTIVITAMIN/LUTEIN/MINERALS 1 TAB PO SCH ×2 (09:40→17:27)
[2017-01-06] MEDS: ASPIRIN 81 MG TAB.CHEW PO SCH (09:44)
[2017-01-06] MEDS: METOPROLOL TARTRATE 50 MG TABLET PO SCH ×2 (09:45→21:42)
[2017-01-06] MEDS: FOLIC ACID 1 MG TABLET PO SCH (09:45)
[2017-01-06] MEDS: INSULIN DETEMIR 100 UNIT/ML CARTRIDGE SQ SCH (09:57)
[2017-01-06] MEDS: APIXABAN 5 MG TABLET PO SCH ×2 (11:46→17:30)
--- NOTE | 2017-01-06 12:00 | NUR ---
MS RN NOTES NOTED PATIENT WITH BS OF 410MG/DL INSULIN ADMINISTERED PER SLIDING SCALE. NOTIFIED LUCERO Cross RELATIONSHIP SPECIALIST ORDERS TO CHANGE PATIENTS SLIDING SCALE TO AGGRESSIVE, NOTED AND CARRIED OUT.
[2017-01-06] MEDS ORDERED: *INSULIN REGULAR(HUMULIN R)HUM 100 UNIT/ML VIAL SQ PRN (14:00)
[2017-01-06] MEDS ORDERED: DEXTROSE 50%-WATER 50 ML DISP.SYRIN IV PRN (14:00)
--- NOTE | 2017-01-06 14:30 | NUR ---
MS RN NOTES PATIENT SEEN BY ROSELYN CANELA DRESSING CHANGED BY . ORDERS NOTED AND CARRIED OUT.
[2017-01-06 16:08] VITALS: BP 114/56
--- NOTE | 2017-01-06 18:30 | NUR ---
MS RN NOTES PATIENT IN BED RESTING NO SOB OR ACUTE DISTRESS NOTED. ALL DUE MEDICATIONS ADMINISTERED, ALL NEEDS MET WILL ENDORSE NERY TO PM SHIFT.
--- NOTE | 2017-01-06 19:35 | NUR ---
RN OPENING NOTES RECEIVED REPORT FROM MUSA RN, EDMOND. FOUND Pt AWAKE RESTING IN BED. NO S/S OF ACUTE DISTRESS OR SOB NOTED. Pt IS A/OX4, VERBAL, ABLE TO MAKE NEEDS KNOWN. NO C/O PAIN AT THIS TIME. IV ACCESS ON R HAND #20G, IVF NS @75ML/HR. SAFETY MEASURES IN PLACE. BED LOW, LOCKED, HOB ELEVATED, SIDE RAILS UP, CALL LIGHT AND BEDSIDE TABLE WITHIN REACH. WILL CONTINUE TO MONITOR Pt THROUGHOUT THE NIGHT FOR SAFETY.
[2017-01-06 20:00] VITALS: BP 147/90
[2017-01-06] MEDS: ATORVASTATIN 10 MG TABLET PO SCH (21:42)
[2017-01-06] MEDS ORDERED: INSULIN DETEMIR 100 UNIT/ML CARTRIDGE SQ SCH (22:00)
--- NOTE | 2017-01-06 22:13 | NUR ---
ACCUCHECK BG 377. ADMINISTERED SCHEDULED LEVEMIR 35UN WITH ADDITIONAL 10UN OF INSULIN PER HS SLIDING SCALE.
[2017-01-07 06:24] LABS: BASOPHILS % (AUTO) 0.1 % (0.0-2.0); HEMATOCRIT 31 % (39-51); LYMPHOCYTES # (AUTO) 0.9 /CMM (0.8-4.8); LYMPHOCYTES % (AUTO) 6.4 % (20.0-44.0); MEAN CORPUSCULAR HEMOGLOBIN 29 PG (26.0-33.0); MEAN CORPUSCULAR HGB CONC 33 g/dl (31.0-36.0); MEAN CORPUSCULAR VOLUME 89 fL (80-96); MONOCYTES # (AUTO) 1.1 /CMM (0.1-1.30); MONOCYTES % (AUTO) 7.7 % (2.0-12.0); NEUTROPHILS % (AUTO) 85.8 % (43.0-81.0); PLATELET COUNT (AUTO) 213 /CMM (150-450); RDW COEFFICIENT OF VARIATION 18.9 (11.5-15.0); RED BLOOD CELL COUNT(AUTO) 3.44 MIL/uL (4.5-6.0); WHITE BLOOD COUNT (AUTO) 13.9 K/uL (4.3-11.0)
--- NOTE | 2017-01-07 06:30 | NUR ---
ACCUCHECK BG 168. ADMINISTERED 4UN OF INSULIN PER SLIDING SCALE.
[2017-01-07 06:43] LABS: ALANINE AMINOTRANSFERASE 26 U/L (12-78); ALBUMIN 2.7 g/dL (3.4-5.0); ALKALINE PHOSPHATASE 61 U/L (46-116); ASPARTATE AMINOTRANSFERASE 23 U/L (15-37); BILIRUBIN,TOTAL 0.3 mg/dL (0.2-1.0); CALCIUM, SERUM 8.9 mg/dL (8.5-10.1); CARBON DIOXIDE 28 mmol/L (21-32); CHLORIDE 104 mmol/L (98-107); CREATININE 2.1 mg/dL (0.6-1.3); GLUCOSE 199 mg/dL (74-106); MAGNESIUM 2.2 mg/dL (1.8-2.4); POTASSIUM 4.6 mmol/L (3.5-5.1); SODIUM SERUM 139 mmol/L (136-145); TOTAL PROTEIN, SERUM 6.1 g/dL (6.4-8.2); UREA NITROGEN, BLOOD 68 mg/dL (7-18)
--- NOTE | 2017-01-07 06:45 | NUR ---
RN CLOSING NOTES: NO SIGNIFICANT CHANGES IN Pt's CONDITION. Pt STABLE AT THIS TIME. ALL NEEDS MET AND ATTENDED TO. SAFETY MEASURES IN PLACE. WILL ENDORSE TO DAYSHIFT RN FOR Pt's NERY.
[2017-01-07 06:47] LABS: CREATINE KINASE, TOTAL 210 U/L (39-308)
[2017-01-07] MEDS: BLOOD SUGAR DIAGNOSTIC 1 EACH STRIP IN SCH ×3 (06:50→17:24)
[2017-01-07] MEDS: INSULIN REGULAR, HUMAN 100 UNIT/ML 3 ML VIAL SQ PRN ×3 (06:54→17:27)
--- NOTE | 2017-01-07 07:17 | NUR ---
MS/RN OPENING NOTES RECEIVED PATIENT AWAKE IN BED IN NO ACUTE SIGNS OF DISTRESS. A/O X 4, VERBALLY RESPONSIVE, DENIES ANY PAIN OR DISCOMFORTS AT THIS TIME. ON ROOM AIR, BREATHING WELL WITH NO SOB NOTED. IV ACCESS ON LEFT HAND PATENT AND INTACT. ON LOW BED AND LOCKED WITH BILATERAL UPPER SIDE RAILS UP FOR SAFETY. CALL LIGHT WITHIN EASY REACH. WILL CONTINUE TO MONITOR PT ACCORDINGLY.
[2017-01-07 08:00] VITALS: BP 142/63
[2017-01-07] MEDS: LORATADINE 10 MG TABLET PO SCH (08:15)
[2017-01-07] MEDS: FERROUS SULFATE (325 MG) 325 MG/TAB TABLET PO SCH (08:16)
[2017-01-07] MEDS: LEVOTHYROXINE SODIUM 88 MCG TABLET PO SCH (08:16)
[2017-01-07] MEDS: CITALOPRAM HYDROBROMIDE 20 MG TABLET PO SCH (08:16)
[2017-01-07] MEDS: FINASTERIDE (5 MG) 5 MG TABLET PO SCH (08:17)
[2017-01-07] MEDS: FOLIC ACID 1 MG TABLET PO SCH (08:17)
[2017-01-07] MEDS: TAMSULOSIN 0.4 MG CAP.SR.24H PO SCH (08:17)
[2017-01-07] MEDS: PANTOPRAZOLE 40 MG TABLET.DR PO SCH (08:17)
[2017-01-07] MEDS: hydrALAZINE HCL 50 MG TABLET PO SCH ×3 (08:17→16:32)
[2017-01-07] MEDS: MULTIVITAMIN/LUTEIN/MINERALS 1 TAB PO SCH ×2 (08:18→16:31)
[2017-01-07] MEDS: ASPIRIN 81 MG TAB.CHEW PO SCH (08:18)
[2017-01-07] MEDS: FAMOTIDINE/PF INJ 20 MG/2 ML VIAL IV SCH (08:18)
[2017-01-07] MEDS: methylPREDNISolone SOD SUCC 40 MG/ML VIAL IV SCH ×3 (08:19→16:31)
[2017-01-07] MEDS: METOPROLOL TARTRATE 50 MG TABLET PO SCH (08:19)
[2017-01-07] MEDS: CHOLECALCIFEROL (VITAMIN D 3) 400 UNIT TABLET PO SCH (09:09)
[2017-01-07] MEDS: APIXABAN 5 MG TABLET PO SCH ×2 (09:09→16:33)
[2017-01-07] MEDS: DAKINS QUARTER STRENGTH (0.125%) 480 ML BOTTLE TOP SCH (09:10)
[2017-01-07] MEDS: GENTAMICIN 0.1% OINT 15 GM TUBE TP SCH ×2 (09:10→16:32)
[2017-01-07] MEDS: INSULIN DETEMIR 100 UNIT/ML CARTRIDGE SQ SCH (09:14)
[2017-01-07] MEDS ORDERED: FAMO-131 PO (11:19)
[2017-01-07] MEDS ORDERED: DIPH25CA49 PO (11:19)
[2017-01-07] MEDS ORDERED: GENT30OI2 TP (11:19)
[2017-01-07] MEDS ORDERED: LORA10TA7 PO (11:19)
[2017-01-07] MEDS ORDERED: METH4TAB16 PO (11:19)
[2017-01-07 16:00] VITALS: BP 145/67
--- NOTE | 2017-01-07 18:31 | NUR ---
MS/RN CLOSING NOTES: PATIENT SITTING ON EDGE OF HIS BED A/O X 4. ABLE TO VOICED OUT NEEDS AND CONCERNS. NO SIGNIFICANT CHANGES NOTED THROUGHOUT THE DAY. CONDITION STABLE. PHOTOS OF SKIN TAKEN AND FILED ON CHART. ALL SAFETY MEASURES IN PLACE. ALL NEEDS AND CARE ATTENDED WELL. WILL ENDORSE TO FINE ARTS CHAIR NURSE THAT PT IS FOR DISCHARGE TONIGHT AND DAUGHTER WILL PICK HIM UP. .
[2017-01-07 19:30] VITALS: BP 140/71
--- NOTE | 2017-01-07 19:35 | NUR ---
RN INITIAL NOTES: RECEIVED REPORT FROM NIKOS MERAZ, PT FOR DC TODAY JUST WAITING FOR THE DAUGHTER TO ACQUISITION CONSULTANT THE PT, DC PAPER WORKS COMPLETED BY DAY RN, PHOTOS ATTACHED TO CHART, BELONGING LIST SIGNED BY THE PT, PT DENIES ANY PAIN OR DISCOMFORT AT THIS TIME, RESPIRATION EVEN AND UNLABORED, SAFETY PRECAUTIONS FOR FALL INITIATED CALL LIGHT IN REACH WILL CONTINUE TO MONITOR
--- NOTE | 2017-01-07 19:49 | NUR ---
DC NOTES: PT'S DAUGHTER CAME TO0 CAN STRIPER THE PT, PT'S DC PAPER WORKS WERE SIGNED BY THE PT AND COPY ATTACHED TO CHART, IV REMOVED AND ARMBAND REMOVED, ALL BELONGINGS SENT HOME WITH THE PT, VS TAKEN AND RECORDED, PT WHEELED BY TONO Colvin, LEFT THE FACILITY ACCOMPANIED BUY DAUGHTER, LEFT VIA PRIVATE CAR, PT LEFT IN STABLE CONDITION.
[2017-01-08 12:13] LABS: PTH, INTACT 224 pg/mL (15-65)
[2017-01-10 07:10] LABS: *SPE A/G RATIO 1.1 (0.7-1.7); *SPE ALBUMIN 3.1 g/dL (2.9-4.4); *SPE ALPHA-1-GLOBULIN 0.3 g/dL (0.0-0.4); *SPE ALPHA-2-GLOBULIN 0.7 g/dL (0.4-1.0); *SPE BETA GLOBULIN 0.7 g/dL (0.7-1.3); *SPE GLOBULIN, TOTAL 2.7 g/dL (2.2-3.9); *SPE M-SPIKE Not Observed g/dL (Not Observed); *SPE PROTEIN TOTAL 5.8 g/dL (6.0-8.5); *SPEGAMMA GLOBULIN 1.1 g/dL (0.4-1.8)
== END 2017-01-07 19:55 | disposition home or self-care (01) | DRG 814 ==
LOC: ER 14:29 → MED 16:38
PROVIDERS: ADMIT Nurse Practitioner Acute Care; ATTEND Nurse Practitioner Acute Care
DX: D72.1 Eosinophilia (principal); N17.0 Acute kidney failure with tubular necrosis; E44.0 Moderate protein-calorie malnutrition; M86.9 Osteomyelitis, unspecified; E11.22 Type 2 diabetes mellitus with diabetic chronic kidney disease; E66.01 Morbid (severe) obesity due to excess calories; L12.0 Bullous pemphigoid; L97.429 Non-pressure chronic ulcer of left heel and midfoot with unspecified severity; J98.11 Atelectasis; E11.65 Type 2 diabetes mellitus with hyperglycemia; E11.621 Type 2 diabetes mellitus with foot ulcer; Z95.1 Presence of aortocoronary bypass graft; Z87.442 Personal history of urinary calculi; Z85.828 Personal history of other malignant neoplasm of skin; Z79.82 Long term (current) use of aspirin; Z79.4 Long term (current) use of insulin; Z79.01 Long term (current) use of anticoagulants; E11.69 Type 2 diabetes mellitus with other specified complication; I12.9 Hypertensive chronic kidney disease with stage 1 through stage 4 chronic kidney disease, or unspecified chronic kidney disease; I25.10 Atherosclerotic heart disease of native coronary artery without angina pectoris; I73.9 Peripheral vascular disease, unspecified; N18.9 Chronic kidney disease, unspecified; Z91.018 Allergy to other foods; T36.1X5A Adverse effect of cephalosporins and other beta-lactam antibiotics, initial encounter; T36.8X5A Adverse effect of other systemic antibiotics, initial encounter; Y92.009 Unspecified place in unspecified non-institutional (private) residence as the place of occurrence of the external cause; L27.1 Localized skin eruption due to drugs and medicaments taken internally; Z79.899 Other long term (current) drug therapy
CPT/HCPCS: 36415; 71010-TC; 76770-TC; 80048-TC; 80053-TC; 80061-TC; 80076-TC; 81000-TC; 82550-TC; 82962-TC; 83605-TC; 83735-TC; 83970; 84100-TC; 84155; 84165; 84484-TC; 85025-TC; 85730-TC; 87040-TC; 87081-TC; 87086-TC; 93307-TC; A4606; A6402; A6403; J1200; J1644; J1815; J2920; J2930; J3490; J7030; J7040; Z7610

== ENCOUNTER 2017-01-11 13:26 | Outpatient (CLI) | payer MEDICARE ==
[~2017-01-11 13:26] MED LIST changes: +APIX5TAB PO; +ASPI81TA2 PO; +CITA20SO PO; +DIPH25CA49 PO; +ERGO400T3 PO; +FAMO-131 PO; +FINA5TAB11 PO; +FURO40TA5 PO; +GENT30OI2 TP; +HYDR-4077 PO; +INSU100V27 SQ; -LEVO75TA7 PO; +LEVO88TA5 PO; +LORA10TA7 PO; +METH4TAB16 PO; +METO100T3 PO; +PANT40TA4 PO; +VIT1CAPS44 PO
== END 2017-01-11 23:59 | disposition home or self-care (01) ==
LOC: WOU 13:26
PROVIDERS: ATTEND Podiatrist Foot & Ankle Surgery
DX: E11.621 Type 2 diabetes mellitus with foot ulcer (principal); Z89.432 Acquired absence of left foot; E11.42 Type 2 diabetes mellitus with diabetic polyneuropathy; R60.0 Localized edema; Z79.4 Long term (current) use of insulin; E11.51 Type 2 diabetes mellitus with diabetic peripheral angiopathy without gangrene; T87.89 Other complications of amputation stump; E11.69 Type 2 diabetes mellitus with other specified complication; M86.672 Other chronic osteomyelitis, left ankle and foot; E11.620 Type 2 diabetes mellitus with diabetic dermatitis; L97.422 Non-pressure chronic ulcer of left heel and midfoot with fat layer exposed; L97.523 Non-pressure chronic ulcer of other part of left foot with necrosis of muscle
CPT/HCPCS: 11043; A6209; A6402

== ENCOUNTER 2017-01-13 09:59 | Inpatient (IN) | payer MEDICARE ==
[~2017-01-13] VITALS: Ht 175.3 cm; Wt 104.3 kg
[2017-01-13] MEDS ORDERED: VANCOMYCIN 1 GM in IV D5W 250 ML IV ONE ×2 (10:30→13:00)
[2017-01-13] MEDS ORDERED: CEFEPIME 1 GM in IV D5W 50 ML IV ONE (10:30)
[2017-01-13] MEDS ORDERED: IV NS 0.9% 1,000 ML BAG IV ONE ×2 (10:30→13:00)
--- NOTE | 2017-01-13 10:30 | NUR ---
PATIENT PRESENTS TO ER C/O GENERALIZED WEAKNESS AND FEVER. PATIENT IS A/OX 4.BREATHING EVEN AND UNLABORED. NO SOB. PATIENT ARRIVED FROM WOUND CENTER, HAS LEFT PARTIAL FOOT AMPUTATION. PATIENT'S VITALS REMAIN STABLE. SAFETY AND COMFORT MEASURES IN PLACE. AWAITING MD ORDERS.
--- NOTE | 2017-01-13 10:47 | NUR ---
NEW IV STARTED ON LEFT AC, 20 G. BLOOD DRAWN AND SENT TO LAB.
[2017-01-13 10:52] LABS: EOSINOPHILS # (AUTO) 1.4 /CMM (0.0-0.7); EOSINOPHILS % (AUTO) 6.2 % (0.0-6.0)
[2017-01-13 10:55] LABS: BASOPHILS # (AUTO) 0.6 /CMM (0.0-0.2); BASOPHILS % (AUTO) 2.6 % (0.0-2.0); HEMATOCRIT 31 % (39-51); HEMOGLOBIN 10.3 g/dL (13.5-17.5); LYMPHOCYTES # (AUTO) 0.9 /CMM (0.8-4.8); MEAN CORPUSCULAR HEMOGLOBIN 29 PG (26.0-33.0); MEAN CORPUSCULAR HGB CONC 34 g/dl (31.0-36.0); MEAN CORPUSCULAR VOLUME 87 fL (80-96); MONOCYTES # (AUTO) 2.3 /CMM (0.1-1.30); MONOCYTES % (AUTO) 10.2 % (2.0-12.0); NEUTROPHILS # (AUTO) 17.2 /CMM (1.8-8.9); PLATELET COUNT (AUTO) 210 /CMM (150-450); RDW COEFFICIENT OF VARIATION 17.5 (11.5-15.0); RED BLOOD CELL COUNT(AUTO) 3.53 MIL/uL (4.5-6.0); WHITE BLOOD COUNT (AUTO) 22.4 K/uL (4.3-11.0)
--- NOTE | 2017-01-13 11:00 | NUR ---
PATIENT MEDICATED PER MD ORDERS.
[2017-01-13 11:03] LABS: CALCIUM, SERUM 8.6 mg/dL (8.5-10.1); CARBON DIOXIDE 32 mmol/L (21-32); CHLORIDE 99 mmol/L (98-107); CREATININE 2.5 mg/dL (0.6-1.3); GLUCOSE 180 mg/dL (74-106); POTASSIUM 3.8 mmol/L (3.5-5.1); SODIUM SERUM 137 mmol/L (136-145); UREA NITROGEN, BLOOD 52 mg/dL (7-18)
[2017-01-13 11:05] LABS: INR 1.21 (0.87-1.13); PROTHROMBIN TIME 12.7 SECS (9.5-12.7)
[2017-01-13 11:09] LABS: ALANINE AMINOTRANSFERASE 31 U/L (12-78); ALBUMIN 2.3 g/dL (3.4-5.0); ALKALINE PHOSPHATASE 56 U/L (46-116); ASPARTATE AMINOTRANSFERASE 16 U/L (15-37); BILIRUBIN,DIRECT 0.3 mg/dL (0.0-0.2); BILIRUBIN,TOTAL 0.9 mg/dL (0.2-1.0); TOTAL PROTEIN, SERUM 6.3 g/dL (6.4-8.2)
[2017-01-13 11:12] LABS: TROPONIN I 0.228 ng/mL (0.00-0.056)
[2017-01-13 11:21] LABS: ABG BASE EXCESS 6.8 mmol/L; ABG OXYGEN SATURATION 58.5 % (92.0-98.5); ABG PCO2 47.5 mmHg (35.0-45.0); ABG PH 7.443 (7.350-7.450); ABG PO2 31.6 mmHg (75.0-100.0); COHb 1.6 % (0.5-1.5); MetHb 0.6 % (0.0-1.5); O2Hb 57.2 % (94.0-97.0); VENT MODE, BG ROOM AIR (VBG)
[2017-01-13] MEDS ORDERED: ASPIRIN 81 MG TAB.CHEW ONE (11:46)
[2017-01-13] MEDS ORDERED: ASPIRIN 81 MG TAB.CHEW PO ONE (12:00)
--- NOTE | 2017-01-13 12:47 | NUR ---
REPORT GIVEN TO RNASHISH FOR ADMISSION. PATIENT TO BE TRANSPORTED TO ROOM 310-2.
--- NOTE | 2017-01-13 12:50 | NUR ---
RECEIVED REPORT FROM MORENO RN, ER
[2017-01-13] MEDS ORDERED: HEPARIN SODIUM, PORCINE 5000 UNITS/1 ML VIAL IV SCH (13:00)
[2017-01-13] MEDS ORDERED: BLOOD SUGAR DIAGNOSTIC 1 EACH STRIP IN SCH (13:00)
[2017-01-13] MEDS ORDERED: MEROPENEM 1 G in IV NS 0.9% 100 ML IV SCH (13:00)
[2017-01-13] MEDS ORDERED: DEXTROSE 50%-WATER 50 ML DISP.SYRIN IV PRN (13:00)
[2017-01-13] MEDS ORDERED: methylPREDNISolone DOSPAK(4MG) 1 PACK TAB.DS.PK PO SCH (13:00)
[2017-01-13] MEDS ORDERED: MORPHINE SULFATE INJ 2 MG/ML DISP.SYRIN IV PRN (13:00)
--- NOTE | 2017-01-13 13:05 | NUR ---
PATIENT TRANSPORTED TO [facility] VIA ACLS PROTOCOL. RNASHISH TO PROVIDE NERY .
--- NOTE | 2017-01-13 13:20 | NUR ---
PATIENT PLACED ON NC 3L
--- NOTE | 2017-01-13 14:30 | NUR ---
RN ADMITTING NOTES PATIENT ARRIVED TO UNIT VIA A GORNEY AT 1315. PATIENT DAUGHTER, CAREY, AT BEDSIDE WITH PATIENT COUSIN. PATIENT IS ALERT AND ORIENTED TO NAME, PLACE AND TIME. OXYGEN SATURATION ON ROOM AIR WAS 88-90%, PLACED PATIENT ON 3L NC WITH OXYGEN SATURATION OF 98%. VITAL SIGNS ARE STABLE; BLOOD PRESSURE 121/64, HEART RATE 84, TEMPERATURE 98.9, RESPIRATION RATE 18 PER MINUTE. ORDERS HAS BEEN RECEIVED FROM DR BLAKE. WILL CONTINUE TO ASSESS AND MONITOR PATIENT THROUGHOUT MY SHIFT
[2017-01-13] MEDS ORDERED: FEE PK DOSING 1 MIN EA MC ONE (14:33)
[2017-01-13] MEDS: hydrALAZINE HCL 50 MG TABLET PO SCH ×2 (14:57→17:00)
[2017-01-13] MEDS ORDERED: IV NS 0.9% 1,000 ML IV ONE (15:00)
[2017-01-13] MEDS: GENTAMICIN 0.1% OINT 15 GM TUBE TP SCH (15:06)
--- NOTE | 2017-01-13 15:15 | NUR ---
CALLED PHARMACY REGARDING ABX AND VIT.D. PHARMACY WILL SEND IT TO THE FLOOR SHORTLY
--- NOTE | 2017-01-13 15:20 | NUR ---
LEFT FOOT DRESSING CHANGE COMPLETED PER DR. JORDAN INSTRUCTIONS, WAITING DR RYAN TO SEE AND EVALUATE PATIENT
[2017-01-13 15:32] LABS: TROPONIN I 0.153 ng/mL (0.00-0.056)
[2017-01-13 16:00] VITALS: BP 118/48
[2017-01-13] MEDS: CHOLECALCIFEROL (VITAMIN D 3) 400 UNIT TABLET PO SCH (16:16)
[2017-01-13] MEDS: MEROPENEM 500 MG in IV NS 0.9% 50 ML IV SCH (16:16)
--- NOTE | 2017-01-13 16:20 | NUR ---
RT PT REFUSED ABG AT THIS TIME. SpO2 98% ON 3LPM VIA N/C. PT AWAKE, ALERT AND VERBALIZING. NO SOB OR SIGNS OF DISTRESS NOTED AT THIS TIME. WILL CONTINUE TO MONITOR THE PATIENT FOR ANY CHANGE OF CONDITION. MARIYA HINOJOSA NOTIFIED AND AWARE.
[2017-01-13] MEDS: BLOOD SUGAR DIAGNOSTIC 1 EACH STRIP IN SCH ×2 (16:32→21:53)
[2017-01-13] MEDS ORDERED: APIXABAN 5 MG TABLET PO ONE (17:00)
[2017-01-13] MEDS: METOPROLOL TARTRATE 50 MG TABLET PO SCH (17:38)
[2017-01-13] MEDS: INSULIN REGULAR, HUMAN 100 UNIT/ML 3 ML VIAL SQ PRN (17:42)
[2017-01-13] MEDS: ACETAMINOPHEN 325 MG TABLET PO PRN (17:43)
--- NOTE | 2017-01-13 18:54 | NUR ---
RN CLOSING NOTES PATIENT IS ALERT AND ORIENTED TO NAME, PLACE AND TIME. BED IN LOW POSITION, LOCKED AND TWO SIDE RAILS ARE UP. NO SIGNS AND SYMPTOMS OF DISTRESS OR PAIN. PATIENT KEPT CLEAN, SAFE AND DRY. DRESSING CHANGE COMPLETED ON LEFT FOOT, WAITING WOUND CARE ORDERS. WILL ENDORSE TO LEGAL JOB TITLES NURSE
--- NOTE | 2017-01-13 19:30 | NUR ---
MEDICAL SCIENCE LIAISON OPENING NOTES: PATIENT SITTING ON BED, AOX4, ON O2 AT 3 LPM VIA NC, BREATHING EVEN AND UNLABORED, DENIES SOB/ DIFFICULTY BREATHING. BREATH SOUNDS CLEAR TO AUSCULTATION. ON TELE MONITORING, SR AT RATE OF 67 WITH BBB. PIV OVER LAC G 20 INTACT AND PATENT TO FLUSH. NOTED LEFT FOOT WITH CLEAN AND INTACT DRESSING, JUST CHANGED BY AM RN. PROVIDED FOR COMFORT AND SAFETY. WILL CONT TO MONITOR.
[2017-01-13] MEDS: diphenhydrAMINE HCL 25 MG CAPSULE PO PRN (20:08)
--- NOTE | 2017-01-13 20:08 | NUR ---
RN NOTES: ADMINISTERED PRN DIPHENHYDRAMINE 25 MG 1 CAP FOR ITCHING.
[2017-01-13 20:26] VITALS: BP 97/43
[2017-01-13] MEDS: ATORVASTATIN 10 MG TABLET PO SCH (21:54)
[2017-01-13] MEDS: INSULIN DETEMIR 100 UNIT/ML CARTRIDGE SQ SCH (21:54)
[2017-01-13] MEDS: *INSULIN REGULAR(HUMULIN R)HUM 100 UNIT/ML VIAL SQ PRN (21:56)
--- NOTE | 2017-01-13 22:40 | NUR ---
RN NOTES: BLOOD SUGAR CHECKED AT 248 MG/DL, ADMINISTERED SCHEDULED 35 UNITS LEVEMIR AND 4 UNITS REGULAR INSULIN PER SCALE. GAVE A SANDWICH TO PATIENT, WHICH HE WAS ABLE TO FINISH. WILL CONT TO MONITOR.
[2017-01-13 22:59] LABS: APPEARANCE,URINE SL CLOUDY (CLEAR); BILIRUBIN,URINE NEGATIVE (NEGATIVE); BLOOD, URINE NEGATIVE Ery/uL (NEGATIVE); COLOR,URINE YELLOW (YELLOW); KETONES,URINE NEGATIVE (NEGATIVE); LEUKOCYTE ESTERASE ,URINE NEGATIVE (NEGATIVE); NITRITE, URINE NEGATIVE (NEGATIVE); PROTEIN,URINE NEGATIVE (NEGATIVE); UGLUCOSE NEGATIVE (NEGATIVE); UROBILINOGEN,URINE 0.2 EU/dL (0.2)
[2017-01-14] VITALS: BP 113/42
[2017-01-14] MEDS: MEROPENEM 500 MG in IV NS 0.9% 50 ML IV SCH ×2 (02:58→16:09)
[2017-01-14 04:00] VITALS: BP 128/67
--- NOTE | 2017-01-14 04:47 | NUR ---
RN NOTES: WOUND DRESSING CHANGED OVER LEFT FOOT. OBTAINED SPECIMEN FOR WOUND CULTURE. PATIENT'S BREATHING NOTED TO BE AT RATE OF 22, BREATH SOUNDS CLEAR, O2 SAT AT 96%. ELEVATED HOB AND MAINTAINED ON O2 AT 3 LPM VIA NC.
[2017-01-14] MEDS: ACETAMINOPHEN 325 MG TABLET PO PRN (05:02)
--- NOTE | 2017-01-14 05:05 | NUR ---
RN NOTES: ADMINISTRED TYLENOL 650 MG PO FOR TEMP: 100.4.
[2017-01-14] MEDS: BLOOD SUGAR DIAGNOSTIC 1 EACH STRIP IN SCH ×4 (06:41→21:24)
[2017-01-14] MEDS: INSULIN REGULAR, HUMAN 100 UNIT/ML 3 ML VIAL SQ PRN ×3 (06:44→17:48)
--- NOTE | 2017-01-14 06:50 | NUR ---
RN NOTES: TEMP DECREASED TO 98.6.
--- NOTE | 2017-01-14 06:57 | NUR ---
ARCHITECTURAL INTERN CLOSING NOTES: PATIENT IN BED, AOX4, ON O2 AT 3 LPM VIA NC, BREATHING STILL AT RATE OF 20-22, O2 SAT CHECKED AT 96%. MAINTAINED HOB ELEVATED. PIV OVER LAC G 20 INTACT AND PATENT, WITH NO SIGNS OF INFILTRATION. BLOOD SUGAR CHECKED AT 261 MG/DL, ADMINISTERED 12 UNITS REGULAR INSULIN PER AGGRESSIVE SS AC. WOUND TREATMENT OVER LEFT FOOT DONE. PROVIDED FOR COMFORT AND SAFETY. BED IN LOWEST AND LOCKED POSITION, SIDERAILS UP X3. WILL ENDORSE TO AM CHARLIE FOR NERY.
[2017-01-14] MEDS: LEVOTHYROXINE SODIUM 88 MCG TABLET PO SCH (07:09)
--- NOTE | 2017-01-14 07:34 | NUR ---
RN OPENING NOTES RECEIVED PATIENT AWAKE, SITTING IN BED. PATIENT IS AOX4. PATIENT HAS NO COMPLAINTS OF PAIN AT THIS TIME. PATIENT IS ON TELE MONITOR, A FIB @ 83. PATIENT DENIES SOB. PATIENT SATURATING ADEQUATELY WITH NC AT 3L. PATIENT APPEARS TO BE IN NO ACUTE DISTRESS. RESPIRATIONS APPEAR TO BE EVEN AND UNLABORED. IV SITE LAC 20G PATENT AND INTACT. NO S/S OF INFILTRATION. PATIENT HAS A LEFT FOOT AMPUTATION. PATIENT HAS MULTIPLE SCABS NOTED ON THE ARMS AND HANDS. NO S/S OF HYPER/HYPOGLYCEMIA. WILL CONTINUE TO MONITOR BLOOD SUGAR. BED LOCKED IN THE LOWEST POSITION WITH SIDE RAILS UP X2. WILL CONTINUE TO MONITOR AND ASSESS PATIENT THROUGHOUT SHIFT.
[2017-01-14 07:52] LABS: BASOPHILS % (AUTO) 0.1 % (0.0-2.0); EOSINOPHILS # (AUTO) 2.6 /CMM (0.0-0.7); EOSINOPHILS % (AUTO) 14.2 % (0.0-6.0); HEMATOCRIT 27 % (39-51); HEMOGLOBIN 8.7 g/dL (13.5-17.5); LYMPHOCYTES # (AUTO) 0.9 /CMM (0.8-4.8); LYMPHOCYTES % (AUTO) 4.9 % (20.0-44.0); MEAN CORPUSCULAR HEMOGLOBIN 28 PG (26.0-33.0); MEAN CORPUSCULAR HGB CONC 32 g/dl (31.0-36.0); MEAN CORPUSCULAR VOLUME 88 fL (80-96); MONOCYTES # (AUTO) 1.3 /CMM (0.1-1.30); NEUTROPHILS # (AUTO) 13.5 /CMM (1.8-8.9); NEUTROPHILS % (AUTO) 73.8 % (43.0-81.0); PLATELET COUNT (AUTO) 162 /CMM (150-450); RDW COEFFICIENT OF VARIATION 19.5 (11.5-15.0); WHITE BLOOD COUNT (AUTO) 18.3 K/uL (4.3-11.0)
[2017-01-14 08:00] VITALS: BP 117/42
[2017-01-14 08:06] LABS: INR 1.1 (0.87-1.13); PROTHROMBIN TIME 11.8 SECS (9.5-12.7)
[2017-01-14 08:08] LABS: ALANINE AMINOTRANSFERASE 24 U/L (12-78); ALBUMIN 1.9 g/dL (3.4-5.0); ALKALINE PHOSPHATASE 58 U/L (46-116); ASPARTATE AMINOTRANSFERASE 18 U/L (15-37); BILIRUBIN,TOTAL 0.5 mg/dL (0.2-1.0); CALCIUM, SERUM 8.2 mg/dL (8.5-10.1); CARBON DIOXIDE 27 mmol/L (21-32); CHLORIDE 105 mmol/L (98-107); CREATININE 2.2 mg/dL (0.6-1.3); GLUCOSE 242 mg/dL (74-106); SODIUM SERUM 139 mmol/L (136-145); TOTAL PROTEIN, SERUM 5.8 g/dL (6.4-8.2); UREA NITROGEN, BLOOD 48 mg/dL (7-18)
[2017-01-14 08:20] LABS: CREATINE KINASE MB 0.7 ng/mL (0-3.6)
[2017-01-14] MEDS ORDERED: FUROSEMIDE 40 MG TABLET PO SCH (09:00)
[2017-01-14] MEDS: hydrALAZINE HCL 50 MG TABLET PO SCH ×3 (09:00→17:35)
[2017-01-14] MEDS: METOPROLOL TARTRATE 50 MG TABLET PO SCH ×2 (09:00→17:34)
--- NOTE | 2017-01-14 09:15 | NUR ---
RN NOTES PATIENT SEEN BY DR. VAUGHN. PATIENT TO HAVE BEDSIDE DEBRIDEMENT. CONSENT FOR DEBRIDEMENT TO BE SIGNED AND PLACED IN CHART.
--- NOTE | 2017-01-14 09:23 | NUR ---
WOUND CARE CONSULT: PT NOT SEEN YET FOR FULL SKIN ASSESSMENT DUE TO PT HAVING PROCEDURE AT THIS TIME. PT HAS RESOLVING BLISTERS/SCABS TO BILATERAL UPPER EXTREMITIES. NO DRAINAGE NOTED. DEFER TO DPM FOR LOWER EXTREMITY WOUND (LEFT STUMP). CURRENT EVI SCORE IS 18. WILL SEE PRN.
[2017-01-14] MEDS ORDERED: APIXABAN 5 MG TABLET PO ONE (09:30)
[2017-01-14] MEDS: FUROSEMIDE 40 MG/4 ML VIAL IV SCH ×3 (09:35→17:39)
[2017-01-14] MEDS: FERROUS SULFATE (325 MG) 325 MG/TAB TABLET PO SCH (09:35)
[2017-01-14] MEDS: CITALOPRAM HYDROBROMIDE 20 MG TABLET PO SCH (09:35)
[2017-01-14] MEDS: FOLIC ACID 1 MG TABLET PO SCH (09:35)
[2017-01-14] MEDS: MULTIVITAMIN/LUTEIN/MINERALS 1 TAB PO SCH ×2 (09:36→17:33)
[2017-01-14] MEDS: FINASTERIDE (5 MG) 5 MG TABLET PO SCH (09:36)
[2017-01-14] MEDS: ASPIRIN 81 MG TAB.CHEW PO SCH (09:36)
[2017-01-14] MEDS: TAMSULOSIN 0.4 MG CAP.SR.24H PO SCH (09:36)
[2017-01-14] MEDS: PANTOPRAZOLE 40 MG TABLET.DR PO SCH (09:36)
[2017-01-14 09:37] LABS: BAND % (MANUAL) 4 % (0.0-5.0); EOSINOPHILS % (MANUAL) 15 % (0-4); LYMPHOCYTES % (MANUAL) 5 % (16-48); MONOCYTES % (MANUAL) 5 % (0-11.0); NEUTROPHILS % (MANUAL) 71 (42-76)
[2017-01-14] MEDS: GENTAMICIN 0.1% OINT 15 GM TUBE TP SCH ×2 (09:37→17:43)
[2017-01-14] MEDS: INSULIN DETEMIR 100 UNIT/ML CARTRIDGE SQ SCH ×2 (09:38→21:32)
--- NOTE | 2017-01-14 09:43 | NUR ---
WOUND CARE: PT SEEN FOR SKIN ASSESSMENT. DEFER TO PODIATRY FOR LEFT LOWER EXTREMITY (JUST DEBRIDED) WITH DRY DRESSING IN PLACE. PT HAS MULTIPLE BLOTCHY RED AREAS ON CHEST, ABDOMEN AND UPPER ARMS, DRY SCABS TO ARMS, PRESENT ON ADMISSION. TINY SCAR NOTED TO SACRAL AREA. EVI SCORE IS 18. PT IS CONTINENT. ALL SKIN PROTECTION MEASURES IN PLACE AND DISCUSSED WITH NURSING STAFF INCLUDING ISOFLEX LOW AIRLOSS BED WHICH WILL BE PLACED WHEN AVAILABLE. WILL SEE PRN. HOLT IN AGREEMENT WITH PLAN OF CARE. Addendum: 01/14/17 at 0948 by DEBRA RUIZ WNDNU Amended: Links added.
[2017-01-14] MEDS: LORATADINE 10 MG TABLET PO SCH (09:45)
--- NOTE | 2017-01-14 09:46 | NUR ---
RN NON ADMIN NOTE HELD PATIENT MORNING BP MEDS. BP 117/42 HR 68. WILL CONTINUE TO MONITOR. WILL REASSESS PRIOR TO 1300 BP MEDS.
[2017-01-14] MEDS: CHOLECALCIFEROL (VITAMIN D 3) 400 UNIT TABLET PO SCH (11:39)
[2017-01-14] MEDS: Z GUARD REMEDY 2 OZ OINT TP PRN (11:40)
[2017-01-14] MEDS: diphenhydrAMINE HCL 25 MG CAPSULE PO PRN (11:47)
[2017-01-14] MEDS: Z GUARD REMEDY 2 OZ OINT TP SCH (11:59)
[2017-01-14] MEDS ORDERED: VANCOMYCIN 0.75 GM in IV D5W 250 ML IV SCH (12:00)
[2017-01-14 16:00] VITALS: BP 125/61
--- NOTE | 2017-01-14 16:55 | NUR ---
RN NOTES REPORT GIVEN FROM LAB BY CLS-PATIENT BLOOD CULTURE PRELIMINARY RESULTS SHOW PATIENT HAS GRAM POSITIVE COCCI CLUSTERS.
[2017-01-14] MEDS ORDERED: APIXABAN 5 MG TABLET PO SCH (17:00)
--- NOTE | 2017-01-14 18:57 | NUR ---
RN CLOSING NOTES PATIENT CONDITION REMAINED UNCHANGED. PATIENT SHOWED NO S/S INFECTION. PATIENT SHOWED NO S/S OF HYPER/HYPOGLYCEMIA. PATIENT IS AOX4. PATIENT HAS NO COMPLAINTS OF PAIN AT THIS TIME. PATIENT HAS BEEN D/C'D FROM TELE. PATIENT DENIES SOB. PATIENT APPEARS TO BE IN NO ACUTE DISTRESS. RESPIRATIONS APPEAR TO BE EVEN AND UNLABORED. IV SITE LAC 20G PATENT AND INTACT. NO S/S OF INFILTRATION. ALL NEEDS MET THROUGH OUT SHIFT. ALL MEDS GIVEN APPROPRIATE. BS CONTROLLED PER AGGRESSIVE SLIDING SCALE. BED LOCKED IN THE LOWEST POSITION WITH SIDE RAILS UP X2. WILL CONTINUE TO MONITOR AND ASSESS PATIENT THROUGHOUT SHIFT. REPORT GIVEN TO NIGHT RN FOR CONTINUATION OF CARE.
--- NOTE | 2017-01-14 19:00 | NUR ---
RN MS NOTES RECEIVED PT IN BED, A/O X 4, PATIENT NOT IN ACUTE DISTRESS, IV SITE INTACT NO S/S OF INFILTRATION. CALL LIGHT WITHIN REACH. SAFETY MEASURES IN PLACE, ON LOW BED, WILL CONTINUE TO MONITOR PT.
[2017-01-14 20:00] VITALS: BP 109/41
[2017-01-14 20:50] VITALS: BP 109/41
[2017-01-14] MEDS: ATORVASTATIN 10 MG TABLET PO SCH (21:25)
[2017-01-14] MEDS: *INSULIN REGULAR(HUMULIN R)HUM 100 UNIT/ML VIAL SQ PRN (21:29)
[2017-01-15] MEDS: MEROPENEM 500 MG in IV NS 0.9% 50 ML IV SCH ×2 (02:29→14:34)
[2017-01-15] MEDS: BLOOD SUGAR DIAGNOSTIC 1 EACH STRIP IN SCH ×4 (05:29→21:26)
[2017-01-15] MEDS: INSULIN REGULAR, HUMAN 100 UNIT/ML 3 ML VIAL SQ PRN ×3 (05:35→17:27)
--- NOTE | 2017-01-15 06:51 | NUR ---
MS RN CLOSING NOTES PATIENT COMFORTABLY ASLEEP AND EASILY AWAKEN, HEAD OF BED ELEVATED FOR BETTER LUNG EXPANSION AND GOOD CIRCULATION. TOLERATING ROOM AIR NOW 02 SAT 98% IV SITE INTACT WITH NO S/S OF INFILTRATED PATENT AND FLUSHED, RESPIRATIONS EVEN AND UNLABORED, FREQUENT VISUAL CHECK DONE FOR SAFETY EVERY 2 HOURS. NURSING CARE RENDERED, NEEDS ATTENDED AND ANTICIPATED, KEPT CLEAN AND DRY AND COMFORTABLE, GOOD SKIN CARE PROVIDED. OFFLOAD AT ALL TIMES. SAFE HAZARD FREE ENVIRONMENT PROVIDED. CALL LIGHT WITHIN EASY TO REACH, ON LOW BED AT ALL TIMES TO ENSURE SAFETY, WILL ENDORSE TO THE NEXT SHIFT CONTINUE PLAN OF CARE
--- NOTE | 2017-01-15 07:10 | NUR ---
MS RN NOTES RECEIVED PATIENT IN BED, AWAKE. A/O X3. ON OXYGEN AT 2LPM VIA NC, NO SOB. APPEARS COMFORTABLE IN BED, NO C/O PAIN AT THIS TIME. CALL LIGHT WITHIN REACH. WILL CONT TO MONITOR.
[2017-01-15 08:00] VITALS: BP 111/43
[2017-01-15] MEDS: LORATADINE 10 MG TABLET PO SCH (08:29)
[2017-01-15] MEDS: TAMSULOSIN 0.4 MG CAP.SR.24H PO SCH (08:29)
[2017-01-15] MEDS: ASPIRIN 81 MG TAB.CHEW PO SCH (08:30)
[2017-01-15] MEDS: PANTOPRAZOLE 40 MG TABLET.DR PO SCH (08:30)
[2017-01-15] MEDS: MULTIVITAMIN/LUTEIN/MINERALS 1 TAB PO SCH ×2 (08:30→17:07)
[2017-01-15] MEDS: FERROUS SULFATE (325 MG) 325 MG/TAB TABLET PO SCH (08:30)
[2017-01-15] MEDS: LEVOTHYROXINE SODIUM 88 MCG TABLET PO SCH (08:30)
[2017-01-15] MEDS: FOLIC ACID 1 MG TABLET PO SCH (08:30)
[2017-01-15] MEDS: FINASTERIDE (5 MG) 5 MG TABLET PO SCH (08:30)
[2017-01-15] MEDS: CITALOPRAM HYDROBROMIDE 20 MG TABLET PO SCH (08:30)
[2017-01-15] MEDS: CHOLECALCIFEROL (VITAMIN D 3) 400 UNIT TABLET PO SCH (08:33)
[2017-01-15] MEDS: ELIQUIS 5 MG PO SCH ×2 (08:34→17:08)
[2017-01-15] MEDS: INSULIN DETEMIR 100 UNIT/ML CARTRIDGE SQ SCH ×2 (08:46→21:27)
[2017-01-15 08:56] LABS: BASOPHILS % (AUTO) 0.2 % (0.0-2.0); EOSINOPHILS # (AUTO) 2.7 /CMM (0.0-0.7); EOSINOPHILS % (AUTO) 16.7 % (0.0-6.0); HEMATOCRIT 28 % (39-51); LYMPHOCYTES # (AUTO) 1.1 /CMM (0.8-4.8); MEAN CORPUSCULAR HEMOGLOBIN 28 PG (26.0-33.0); MEAN CORPUSCULAR HGB CONC 32 g/dl (31.0-36.0); MEAN CORPUSCULAR VOLUME 88 fL (80-96); MONOCYTES # (AUTO) 1.6 /CMM (0.1-1.30); MONOCYTES % (AUTO) 9.9 % (2.0-12.0); NEUTROPHILS # (AUTO) 10.6 /CMM (1.8-8.9); NEUTROPHILS % (AUTO) 66.2 % (43.0-81.0); PLATELET COUNT (AUTO) 180 /CMM (150-450); RDW COEFFICIENT OF VARIATION 19.2 (11.5-15.0); RED BLOOD CELL COUNT(AUTO) 3.19 MIL/uL (4.5-6.0); WHITE BLOOD COUNT (AUTO) 16.1 K/uL (4.3-11.0)
[2017-01-15] MEDS: METOPROLOL TARTRATE 50 MG TABLET PO SCH ×2 (09:00→17:08)
[2017-01-15] MEDS: hydrALAZINE HCL 50 MG TABLET PO SCH ×3 (09:00→17:08)
[2017-01-15 09:13] LABS: CALCIUM, SERUM 8.5 mg/dL (8.5-10.1); CARBON DIOXIDE 30 mmol/L (21-32); CHLORIDE 101 mmol/L (98-107); CREATININE 2.3 mg/dL (0.6-1.3); GLUCOSE 155 mg/dL (74-106); MAGNESIUM 1.7 mg/dL (1.8-2.4); SODIUM SERUM 137 mmol/L (136-145); UREA NITROGEN, BLOOD 47 mg/dL (7-18)
[2017-01-15 09:35] LABS: IRON, SERUM 12 ug/dl (50-175); TOTAL IRON BINDING CAPACITY 113 ug/dl (250-450)
--- NOTE | 2017-01-15 09:48 | NUR ---
PATIENT IS SEEN BY DR. VAUGHN TODAY, WOUND DEBRIDEMENT LEFT FOOT BY DR. VAUGHN AT THE BEDSIDE. PATIENT TOLERATED PROCEDURE WELL. SPECIMEN FOR WOUND CX GS SENT TO LAB ORDERED.
[2017-01-15] MEDS: Z GUARD REMEDY 2 OZ OINT TP SCH (09:58)
[2017-01-15] MEDS: GENTAMICIN 0.1% OINT 15 GM TUBE TP SCH ×2 (10:01→17:50)
[2017-01-15] MEDS: FUROSEMIDE 40 MG/4 ML VIAL IV SCH ×3 (10:46→18:37)
[2017-01-15 11:12] LABS: FERRITIN 610 ng/mL (8-388)
[2017-01-15] MEDS: VANCOMYCIN 1 GM in IV D5W 250 ML IV SCH (11:34)
--- NOTE | 2017-01-15 14:33 | NUR ---
BLOOD CULTURE RESULTED, MRSA BLOOD. PLACE PATIENT ON ISOLATION. CHARGE NURSE IS AWARE.
[2017-01-15] MEDS ORDERED: Magnesium 1GM/D5W 100ML PREMIX 100 ML IV SCH (15:36)
[2017-01-15 16:00] VITALS: BP 133/61
[2017-01-15] MEDS ORDERED: PROSTAT (PYXIS) 30 ML UDC PO SCH (16:00)
[2017-01-15] MEDS: diphenhydrAMINE HCL 25 MG CAPSULE PO PRN (17:12)
--- NOTE | 2017-01-15 18:29 | NUR ---
MS RN CLOSING NOTES PATIENT IN BED, NOT IN DISTRESS. POST DEBRIDEMENT LEFT FOOT WOUND TODAY, LEFT FOOT DRESSING IN PLACE, NO BLEEDING NOTED. BLOOD SUGAR MONITORED. ON ANTIBIOTIC WITH NO ADVERSE SIDE EFFECT, AFEBRILE, NO DIARRHEA. PLACE CALL LIGHT WITHIN REACH. WILL ENDORSE TO TECHNICAL EDITOR RN FOR CONTINUITY OF CARE.
--- NOTE | 2017-01-15 19:00 | NUR ---
RN MS NOTES PT RECEIVED AWAKE IN BED, A/O X 4, PATIENT NOT IN ACUTE RESPIRATORY/DISTRESS, IV SITE INTACT NO S/S OF INFILTRATION. PATIENT NOT IN PAIN 0/10 CALL LIGHT WITHIN REACH. SAFETY MEASURES IN PLACE, ON LOW BED, WILL CONTINUE TO MONITOR PT
[2017-01-15 20:00] VITALS: BP 113/49
[2017-01-15] MEDS: ATORVASTATIN 10 MG TABLET PO SCH (21:22)
[2017-01-15] MEDS: *INSULIN REGULAR(HUMULIN R)HUM 100 UNIT/ML VIAL SQ PRN (21:29)
[2017-01-16] MEDS: MEROPENEM 500 MG in IV NS 0.9% 50 ML IV SCH ×2 (03:00→15:48)
[2017-01-16] MEDS: BLOOD SUGAR DIAGNOSTIC 1 EACH STRIP IN SCH ×4 (05:23→21:30)
[2017-01-16] MEDS: INSULIN REGULAR, HUMAN 100 UNIT/ML 3 ML VIAL SQ PRN ×3 (05:27→18:00)
--- NOTE | 2017-01-16 06:35 | NUR ---
MS RN CLOSING NOTES PATIENT COMFORTABLY ASLEEP AND EASILY AWAKEN, TOLERATING ROOM AIR 02 SAT 96% HEAD OF BED ELEVATED FOR BETTER LUNG EXPANSION AND GOOD CIRCULATION. RESPIRATIONS EVEN AND UNLABORED LAC 20 G PATIENT IV SITE INTACT WITH NO S/S OF INFILTRATED PATENT AND FLUSHED, FREQUENT VISUAL CHECK DONE FOR SAFETY EVERY 2 HOURS. KEPT CLEAN AND DRY AND COMFORTABLE, GOOD SKIN CARE PROVIDED. NURSING CARE RENDERED, NEEDS ATTENDED AND ANTICIPATED, OFFLOAD AT ALL TIMES. SAFE HAZARD FREE ENVIRONMENT PROVIDED. CALL LIGHT WITHIN EASY TO REACH, ON LOW BED AT ALL TIMES TO ENSURE SAFETY, WILL ENDORSE TO THE NEXT SHIFT CONTINUE PLAN OF CARE.
[2017-01-16 07:17] LABS: BASOPHILS # (AUTO) 0.1 /CMM (0.0-0.2); BASOPHILS % (AUTO) 0.9 % (0.0-2.0); EOSINOPHILS # (AUTO) 3.2 /CMM (0.0-0.7); EOSINOPHILS % (AUTO) 21.5 % (0.0-6.0); HEMATOCRIT 28 % (39-51); LYMPHOCYTES # (AUTO) 1.2 /CMM (0.8-4.8); LYMPHOCYTES % (AUTO) 7.9 % (20.0-44.0); MEAN CORPUSCULAR HEMOGLOBIN 28 PG (26.0-33.0); MEAN CORPUSCULAR HGB CONC 32 g/dl (31.0-36.0); MEAN CORPUSCULAR VOLUME 88 fL (80-96); NEUTROPHILS # (AUTO) 9.3 /CMM (1.8-8.9); NEUTROPHILS % (AUTO) 62.7 % (43.0-81.0); PLATELET COUNT (AUTO) 214 /CMM (150-450); RDW COEFFICIENT OF VARIATION 19.4 (11.5-15.0); WHITE BLOOD COUNT (AUTO) 14.9 K/uL (4.3-11.0)
[2017-01-16 07:49] LABS: ALANINE AMINOTRANSFERASE 51 U/L (12-78); ALBUMIN 2.1 g/dL (3.4-5.0); ALKALINE PHOSPHATASE 114 U/L (46-116); ASPARTATE AMINOTRANSFERASE 29 U/L (15-37); BILIRUBIN,TOTAL 0.5 mg/dL (0.2-1.0); CALCIUM, SERUM 8.5 mg/dL (8.5-10.1); CARBON DIOXIDE 29 mmol/L (21-32); CHLORIDE 101 mmol/L (98-107); CREATININE 2.1 mg/dL (0.6-1.3); GLUCOSE 165 mg/dL (74-106); MAGNESIUM 2.1 mg/dL (1.8-2.4); POTASSIUM 3.9 mmol/L (3.5-5.1); SODIUM SERUM 138 mmol/L (136-145); TOTAL PROTEIN, SERUM 6.5 g/dL (6.4-8.2); UREA NITROGEN, BLOOD 47 mg/dL (7-18)
[2017-01-16 08:00] VITALS: BP 121/63
--- NOTE | 2017-01-16 08:00 | NUR ---
MS RN NOTES PATIENT SLEEPING IN BED, NO C/O PAIN NOTED. BED IN SEMI-PARK POSITION PER PT COMFORT. NO DISTRESS, NO DISCOMFORT NOTED. PERIPHERAL IV LINE ON LAC INTACT PATENT. MONITORING CLOSELY.
[2017-01-16] MEDS: ELIQUIS 5 MG PO SCH ×2 (09:17→17:56)
[2017-01-16] MEDS: PANTOPRAZOLE 40 MG TABLET.DR PO SCH (09:18)
[2017-01-16] MEDS: FINASTERIDE (5 MG) 5 MG TABLET PO SCH (09:18)
[2017-01-16] MEDS: FERROUS SULFATE (325 MG) 325 MG/TAB TABLET PO SCH (09:18)
[2017-01-16] MEDS: MULTIVITAMIN/LUTEIN/MINERALS 1 TAB PO SCH ×2 (09:18→17:54)
[2017-01-16] MEDS: CHOLECALCIFEROL (VITAMIN D 3) 400 UNIT TABLET PO SCH (09:18)
[2017-01-16] MEDS: TAMSULOSIN 0.4 MG CAP.SR.24H PO SCH (09:18)
[2017-01-16] MEDS: LEVOTHYROXINE SODIUM 88 MCG TABLET PO SCH (09:19)
[2017-01-16] MEDS: FOLIC ACID 1 MG TABLET PO SCH (09:19)
[2017-01-16] MEDS: ASPIRIN 81 MG TAB.CHEW PO SCH (09:19)
[2017-01-16] MEDS: CITALOPRAM HYDROBROMIDE 20 MG TABLET PO SCH (09:19)
[2017-01-16] MEDS: hydrALAZINE HCL 50 MG TABLET PO SCH ×3 (09:21→17:55)
[2017-01-16] MEDS: METOPROLOL TARTRATE 50 MG TABLET PO SCH ×2 (09:21→17:55)
[2017-01-16] MEDS: LORATADINE 10 MG TABLET PO SCH (09:24)
[2017-01-16] MEDS: INSULIN DETEMIR 100 UNIT/ML CARTRIDGE SQ SCH ×2 (09:24→21:32)
[2017-01-16] MEDS: GENTAMICIN 0.1% OINT 15 GM TUBE TP SCH ×2 (09:28→17:57)
[2017-01-16] MEDS: Z GUARD REMEDY 2 OZ OINT TP PRN ×2 (09:29→10:55)
[2017-01-16 10:02] LABS: EOSINOPHILS % (MANUAL) 16 % (0-4); LYMPHOCYTES % (MANUAL) 7 % (16-48); MONOCYTES % (MANUAL) 4 % (0-11.0); NEUTROPHILS % (MANUAL) 73 (42-76)
[2017-01-16] MEDS: PROSOURCE / PROSTAT (PYXIS) 30 ML UDC PO SCH (10:54)
[2017-01-16] MEDS: VANCOMYCIN 1 GM in IV D5W 250 ML IV SCH (12:41)
[2017-01-16] MEDS: Z GUARD REMEDY 2 OZ OINT TP SCH (12:43)
--- NOTE | 2017-01-16 14:30 | NUR ---
MS RN NOTES PATIENT SLEEPING IN BED COMFORTABLY, NO C/O PAIN NOTED. NO DISTRESS NOTED. ALL NEEDS MET. MONITORING CLOSELY.
[2017-01-16 16:00] VITALS: BP 116/61
--- NOTE | 2017-01-16 19:10 | NUR ---
MS RN NOTES PATIENT SITTING UP IN A REGULAR CHAIR. DENIED ANY PAIN. WOUND DRESSING DONE ORDERED & TOLERATED WELL. RESPIRATION EVEN & NONLABORED. PERIPHERAL IV LINE WAS CHANGED TO RIGHT WRIST. NO SOB NOTED. BED IN LOW LOCKED POSITION. CALL LIGHT WITHIN REACH. ALL MEDS GIVEN & TOLERATED WELL. CONTINUING TO MONITOR.
--- NOTE | 2017-01-16 20:25 | NUR ---
MS RN NOTES: RECEIVED PT FROM AM SHIFT TO COVER FOR REGISTRATION SPECIALIST PM NURSE. HANDED OFF TO NURSE. PT HAS BEEN SITTING UP IN A REGULAR CHAIR WATCHING ON HIS PHONE. NO S/S OF PAIN. RESPIRATIONS EVEN AND NON-LABORED. IV ON R WRIST AND IS PATENT AND INTACT. NO SOB NOTED. BE IN LOW, LOCKED POSITION, AND SIDE RAILS X 2 UP. CALL LIGHT WITHIN PT'S REACH. ENDORSED TO MARIYA VENCES FOR NERY.
--- NOTE | 2017-01-16 20:30 | NUR ---
MS RN NOTE RECEIVED PATIENT AWAKE, RESTING IN BED. IV ON LEFT ARM AND LEFT WRIST ARE PATENT AND INTACT, HL ONLY. DENIES RESPIRATORY DISTRESS OR PAIN AT THIS TIME. SRX2, BED IN LOW POSITION, CALL LIGHT WITHIN REACH, WILL CONTINUE TO MONITOR PATIENT.
[2017-01-16 20:37] VITALS: BP 127/59
[2017-01-16] MEDS: ATORVASTATIN 10 MG TABLET PO SCH (21:28)
[2017-01-16] MEDS: *INSULIN REGULAR(HUMULIN R)HUM 100 UNIT/ML VIAL SQ PRN (21:31)
[2017-01-17] MEDS: MEROPENEM 500 MG in IV NS 0.9% 50 ML IV SCH ×2 (02:51→15:25)
[2017-01-17] MEDS: INSULIN REGULAR, HUMAN 100 UNIT/ML 3 ML VIAL SQ PRN ×3 (06:20→17:07)
[2017-01-17] MEDS: BLOOD SUGAR DIAGNOSTIC 1 EACH STRIP IN SCH ×4 (06:21→22:34)
[2017-01-17 06:34] LABS: BASOPHILS % (AUTO) 0.3 % (0.0-2.0); EOSINOPHILS # (AUTO) 4.1 /CMM (0.0-0.7); EOSINOPHILS % (AUTO) 24.4 % (0.0-6.0); HEMATOCRIT 28 % (39-51); HEMOGLOBIN 9.1 g/dL (13.5-17.5); MEAN CORPUSCULAR HEMOGLOBIN 29 PG (26.0-33.0); MEAN CORPUSCULAR HGB CONC 32 g/dl (31.0-36.0); MEAN CORPUSCULAR VOLUME 88 fL (80-96); MONOCYTES % (AUTO) 6.2 % (2.0-12.0); NEUTROPHILS # (AUTO) 10.5 /CMM (1.8-8.9); NEUTROPHILS % (AUTO) 63.1 % (43.0-81.0); PLATELET COUNT (AUTO) 244 /CMM (150-450); RDW COEFFICIENT OF VARIATION 18.2 (11.5-15.0); RED BLOOD CELL COUNT(AUTO) 3.17 MIL/uL (4.5-6.0); WHITE BLOOD COUNT (AUTO) 16.7 K/uL (4.3-11.0)
--- NOTE | 2017-01-17 06:51 | NUR ---
MS RN NOTE PATIENT IS SLEEPING IN BED COMFORTABLY, NO ACUTE DISTRESS NOTED THROUGHOUT THE SHIFT, WILL ENDORSE TO DAY SHIFT NURSE FOR NERY.
[2017-01-17 06:59] LABS: CALCIUM, SERUM 8.6 mg/dL (8.5-10.1); CARBON DIOXIDE 30 mmol/L (21-32); CHLORIDE 100 mmol/L (98-107); CREATININE 2.1 mg/dL (0.6-1.3); GLUCOSE 177 mg/dL (74-106); PHOSPHORUS 3.6 mg/dL (2.5-4.9); POTASSIUM 4.3 mmol/L (3.5-5.1); SODIUM SERUM 135 mmol/L (136-145); UREA NITROGEN, BLOOD 52 mg/dL (7-18)
[2017-01-17 07:11] LABS: EOSINOPHILS % (MANUAL) 22 % (0-4); LYMPHOCYTES % (MANUAL) 7 % (16-48); MONOCYTES % (MANUAL) 3 % (0-11.0); NEUTROPHILS % (MANUAL) 68 (42-76)
[2017-01-17 08:00] VITALS: BP 125/71
--- NOTE | 2017-01-17 08:00 | NUR ---
MS RN NOTES PATIENT IN BED RESTING NO SOB OR ACUTE DISTRESS NOTED. BED IN LOW LOCKED POSITION. CALL LIGHT WITHIN REACH. WILL CONTINUE TO MONITOR.
[2017-01-17] MEDS: PANTOPRAZOLE 40 MG TABLET.DR PO SCH (08:34)
[2017-01-17] MEDS: FINASTERIDE (5 MG) 5 MG TABLET PO SCH (08:34)
[2017-01-17] MEDS: PROSOURCE / PROSTAT (PYXIS) 30 ML UDC PO SCH (08:34)
[2017-01-17] MEDS: LORATADINE 10 MG TABLET PO SCH (08:34)
[2017-01-17] MEDS: CITALOPRAM HYDROBROMIDE 20 MG TABLET PO SCH (08:34)
[2017-01-17] MEDS: MULTIVITAMIN/LUTEIN/MINERALS 1 TAB PO SCH ×2 (08:34→16:59)
[2017-01-17] MEDS: LEVOTHYROXINE SODIUM 88 MCG TABLET PO SCH (08:35)
[2017-01-17] MEDS: FOLIC ACID 1 MG TABLET PO SCH (08:35)
[2017-01-17] MEDS: FERROUS SULFATE (325 MG) 325 MG/TAB TABLET PO SCH (08:35)
[2017-01-17] MEDS: TAMSULOSIN 0.4 MG CAP.SR.24H PO SCH (08:35)
[2017-01-17] MEDS: METOPROLOL TARTRATE 50 MG TABLET PO SCH ×2 (08:35→17:00)
[2017-01-17] MEDS: hydrALAZINE HCL 50 MG TABLET PO SCH ×3 (08:36→17:00)
[2017-01-17] MEDS: GENTAMICIN 0.1% OINT 15 GM TUBE TP SCH ×2 (08:37→17:01)
[2017-01-17] MEDS: Z GUARD REMEDY 2 OZ OINT TP SCH (08:37)
[2017-01-17] MEDS: ELIQUIS 5 MG PO SCH ×2 (08:42→17:00)
[2017-01-17] MEDS: CHOLECALCIFEROL (VITAMIN D 3) 400 UNIT TABLET PO SCH (08:42)
[2017-01-17] MEDS: ASPIRIN 81 MG TAB.CHEW PO SCH (08:42)
[2017-01-17] MEDS: CHLORHEXIDINE GLUCONATE 4% 118 ML BOTTLE TP SCH (08:43)
[2017-01-17] MEDS: INSULIN DETEMIR 100 UNIT/ML CARTRIDGE SQ SCH ×2 (08:44→22:31)
--- NOTE | 2017-01-17 10:06 | NUR ---
MS RN NOTES DR. FRY PERFORMED DEBRIDEMENT OF LEFT FOOT. OBTAINED CONSENT FROM PATIENT. TOLERATED PROCEDURE WELL.
[2017-01-17] MEDS: VANCOMYCIN 1 GM in IV D5W 250 ML IV SCH (12:43)
[2017-01-17] MEDS: SOD FERRIC GLUC 125 MG in IV NS 0.9% 100 ML IV SCH (14:02)
[2017-01-17 16:00] VITALS: BP 131/70
--- NOTE | 2017-01-17 19:25 | NUR ---
MS RN NOTES PATIENT IN BED RESTING NO SOB OR ACUTE DISTRESS NOTED. ALL DUE MEDICATIONS ADMINISTERED. ALL NEEDS MET. MIDLINE INTACT PATENT ON LEFT UPPER ARM. WILL ENDORSE TO PM SHIFT NERY.
--- NOTE | 2017-01-17 19:30 | NUR ---
MS/RN RECEIVE PATIENT SLEEPING, AROUSABLE, APPEAR COMFORTABLE, NO DISTRESS NOTE, CALL LIGHT IN REACH. WILL MONITOR.
[2017-01-17 20:00] VITALS: BP 132/52
[2017-01-17] MEDS: ATORVASTATIN 10 MG TABLET PO SCH (22:29)
[2017-01-17] MEDS: *INSULIN REGULAR(HUMULIN R)HUM 100 UNIT/ML VIAL SQ PRN (22:32)
--- NOTE | 2017-01-17 22:32 | NUR ---
MS/RN SNACK GIVEN AFTER INSULIN DOSE. WILL MONITOR.
--- NOTE | 2017-01-18 02:12 | NUR ---
MS/RN PATIENT IS SLEEPING AT THIS TIME, AROUSABLE, APPEAR COMFORTABLE, NO SIGNS OF DISTRESS NOTE, CALL LIGHT IN REACH. WILL CONTINUE TO MONITOR.
[2017-01-18] MEDS: MEROPENEM 500 MG in IV NS 0.9% 50 ML IV SCH ×2 (03:09→15:43)
--- NOTE | 2017-01-18 05:46 | NUR ---
MS/RN DRESSING OF LEFT FOOT IS SOAK WITH DRAINAGE. CHANGED DRESSING PER ORDER. MORNING CARE WAS DONE WELL.
[2017-01-18 06:33] LABS: BASOPHILS % (AUTO) 0.1 % (0.0-2.0); EOSINOPHILS # (AUTO) 4.5 /CMM (0.0-0.7); HEMATOCRIT 28 % (39-51); HEMOGLOBIN 9.1 g/dL (13.5-17.5); LYMPHOCYTES # (AUTO) 1.1 /CMM (0.8-4.8); LYMPHOCYTES % (AUTO) 6.6 % (20.0-44.0); MEAN CORPUSCULAR HEMOGLOBIN 28 PG (26.0-33.0); MEAN CORPUSCULAR HGB CONC 32 g/dl (31.0-36.0); MEAN CORPUSCULAR VOLUME 88 fL (80-96); MONOCYTES % (AUTO) 6.4 % (2.0-12.0); NEUTROPHILS # (AUTO) 9.8 /CMM (1.8-8.9); NEUTROPHILS % (AUTO) 59.7 % (43.0-81.0); PLATELET COUNT (AUTO) 269 /CMM (150-450); RDW COEFFICIENT OF VARIATION 18.9 (11.5-15.0); RED BLOOD CELL COUNT(AUTO) 3.19 MIL/uL (4.5-6.0); WHITE BLOOD COUNT (AUTO) 16.4 K/uL (4.3-11.0)
[2017-01-18 06:35] LABS: EOSINOPHILS % (AUTO) 27.2 % (0.0-6.0)
[2017-01-18] MEDS: INSULIN REGULAR, HUMAN 100 UNIT/ML 3 ML VIAL SQ PRN ×2 (06:47→12:24)
[2017-01-18 06:59] LABS: CALCIUM, SERUM 8.4 mg/dL (8.5-10.1); CARBON DIOXIDE 30 mmol/L (21-32); CHLORIDE 101 mmol/L (98-107); CREATININE 2.3 mg/dL (0.6-1.3); GLUCOSE 159 mg/dL (74-106); MAGNESIUM 1.9 mg/dL (1.8-2.4); PHOSPHORUS 3.6 mg/dL (2.5-4.9); POTASSIUM 4.3 mmol/L (3.5-5.1); SODIUM SERUM 135 mmol/L (136-145); UREA NITROGEN, BLOOD 56 mg/dL (7-18)
--- NOTE | 2017-01-18 07:00 | NUR ---
MS/RN PATIENT IS DOZING INTERMITTENTLY, APPEAR COMFORTABLE, NO SIGNS OF DISTRESS NOTED, ALL NEEDS ATTENDED AT THIS TIME. WILL CONTINUE TO MONITOR.
[2017-01-18 07:59] LABS: EOSINOPHILS % (MANUAL) 26 % (0-4); LYMPHOCYTES % (MANUAL) 3 % (16-48); MONOCYTES % (MANUAL) 2 % (0-11.0); NEUTROPHILS % (MANUAL) 69 (42-76)
[2017-01-18 08:00] VITALS: BP 132/61
--- NOTE | 2017-01-18 08:00 | NUR ---
MS RN NOTES PATIENT SLEEPING IN BED. NO ACUTE DISTRESS OR DISCOMFORT NOTED. NO C/O PAIN NOTED AT THIS TIME. MIDLINE ON LEFT UPPER ARM INTACT PATENT. BED IN LOW LOCKED POSITION. CALL LIGHT WITHIN REACH. OBSERVING CLOSELY.
[2017-01-18] MEDS: METOPROLOL TARTRATE 50 MG TABLET PO SCH ×2 (09:00→18:12)
[2017-01-18] MEDS: hydrALAZINE HCL 50 MG TABLET PO SCH ×3 (09:00→18:13)
[2017-01-18] MEDS: BLOOD SUGAR DIAGNOSTIC 1 EACH STRIP IN SCH ×4 (09:21→22:35)
[2017-01-18] MEDS: LORATADINE 10 MG TABLET PO SCH (09:22)
[2017-01-18] MEDS: CITALOPRAM HYDROBROMIDE 20 MG TABLET PO SCH (09:22)
[2017-01-18] MEDS: LEVOTHYROXINE SODIUM 88 MCG TABLET PO SCH (09:22)
[2017-01-18] MEDS: ASPIRIN 81 MG TAB.CHEW PO SCH (09:22)
[2017-01-18] MEDS: MULTIVITAMIN/LUTEIN/MINERALS 1 TAB PO SCH ×2 (09:22→18:09)
[2017-01-18] MEDS: TAMSULOSIN 0.4 MG CAP.SR.24H PO SCH (09:22)
[2017-01-18] MEDS: ELIQUIS 5 MG PO SCH ×2 (09:23→18:49)
[2017-01-18] MEDS: FERROUS SULFATE (325 MG) 325 MG/TAB TABLET PO SCH (09:23)
[2017-01-18] MEDS: CHOLECALCIFEROL (VITAMIN D 3) 400 UNIT TABLET PO SCH (09:23)
[2017-01-18] MEDS: FOLIC ACID 1 MG TABLET PO SCH (09:23)
[2017-01-18] MEDS: FINASTERIDE (5 MG) 5 MG TABLET PO SCH (09:23)
[2017-01-18] MEDS: PANTOPRAZOLE 40 MG TABLET.DR PO SCH (09:23)
[2017-01-18] MEDS: PROSOURCE / PROSTAT (PYXIS) 30 ML UDC PO SCH (09:23)
[2017-01-18] MEDS: INSULIN DETEMIR 100 UNIT/ML CARTRIDGE SQ SCH ×2 (09:26→22:24)
[2017-01-18] MEDS: CHLORHEXIDINE GLUCONATE 4% 118 ML BOTTLE TP SCH (09:26)
[2017-01-18] MEDS: Z GUARD REMEDY 2 OZ OINT TP PRN (09:27)
[2017-01-18] MEDS: GENTAMICIN 0.1% OINT 15 GM TUBE TP SCH ×2 (09:27→18:19)
[2017-01-18] MEDS: Z GUARD REMEDY 2 OZ OINT TP SCH (09:29)
[2017-01-18] MEDS ORDERED: BARIUM SULFATE 240 ML ORAL.SUSP PO ONE (10:00)
[2017-01-18] MEDS ORDERED: BARIUM SULFATE 148 GM SUSP.RECON PO ONE (10:00)
[2017-01-18] MEDS: VANCOMYCIN 1 GM in IV D5W 250 ML IV SCH (12:45)
[2017-01-18] MEDS: SOD FERRIC GLUC 125 MG in IV NS 0.9% 100 ML IV SCH (14:27)
[2017-01-18 16:00] VITALS: BP 134/60
[2017-01-18] MEDS ORDERED: HYDROCORTISONE 0.5% CREAM 28.35 GM TUBE TP PRN (16:30)
[2017-01-18] MEDS: FLUOCINONIDE 0.05% CREAM 60 GM TUBE TP SCH (18:11)
[2017-01-18] MEDS: *INSULIN REGULAR(HUMULIN R)HUM 100 UNIT/ML VIAL SQ PRN ×2 (18:41→22:23)
--- NOTE | 2017-01-18 18:59 | NUR ---
MS RN NOTES PATIENT SLEEPING IN BED. NO ACUTE DISTRESS OR DISCOMFORT NOTED. NO C/O PAIN NOTED AT THIS TIME. MIDLINE ON LEFT UPPER ARM AND LEFT WRIST INTACT PATENT NO REDNESS OR INFILTRATION NOTED. BED IN LOW LOCKED POSITION. CALL LIGHT WITHIN REACH. WILL CONTINUE TO MONITOR AND ENDORSE TO NEXT SHIFT FOR CONTINUITY OF CARE.
--- NOTE | 2017-01-18 19:30 | NUR ---
MS/RN RECEIVE PATIENT AWAKE, ALERT, ORIENTED, COMFORTABLE, NO C/O PAIN, NO DISTRESS NOTED, CALL LIGHT IN REACH. WILL MONITOR.
[2017-01-18 20:00] VITALS: BP 127/58
[2017-01-18] MEDS: ATORVASTATIN 10 MG TABLET PO SCH (22:22)
--- NOTE | 2017-01-19 06:16 | NUR ---
MS/RN PATIENT STILL SLEEPING AT THIS TIME, AROUSABLE, APPEAR COMFORTABLE, NO DISTRESS NOTED, CALL LIGHT IN REACH. ALL NEEDS ATTENDED AT THIS TIME. WILL CONTINUE TO MONITOR.
[2017-01-19] MEDS: BLOOD SUGAR DIAGNOSTIC 1 EACH STRIP IN SCH ×3 (07:40→17:22)
--- NOTE | 2017-01-19 07:50 | NUR ---
RN NOTES RECEIVED PATIENT IN BED, AWAKE, HOB ELEVATED. NO SOB OR DISTRESS NOTED. A/ O X 3, VERBALLY RESPONSIVE AND ABLE TO MAKE NEEDS KNOWN. IV INTACT AND PATENT. KEPT PATIENT CLEAN AND COMFORTABLE IN BED, CALL LIGHT WITHIN PATIENT REACH. WILL CONTINUE TO MONITOR ACCORDINGLY.
[2017-01-19 07:53] LABS: BASOPHILS # (AUTO) 0.1 /CMM (0.0-0.2); BASOPHILS % (AUTO) 0.7 % (0.0-2.0); EOSINOPHILS # (AUTO) 4.5 /CMM (0.0-0.7); HEMATOCRIT 27 % (39-51); HEMOGLOBIN 8.6 g/dL (13.5-17.5); LYMPHOCYTES # (AUTO) 1.1 /CMM (0.8-4.8); LYMPHOCYTES % (AUTO) 7.7 % (20.0-44.0); MEAN CORPUSCULAR HEMOGLOBIN 29 PG (26.0-33.0); MEAN CORPUSCULAR HGB CONC 32 g/dl (31.0-36.0); MEAN CORPUSCULAR VOLUME 88 fL (80-96); MONOCYTES # (AUTO) 0.8 /CMM (0.1-1.30); MONOCYTES % (AUTO) 5.4 % (2.0-12.0); NEUTROPHILS # (AUTO) 8.2 /CMM (1.8-8.9); NEUTROPHILS % (AUTO) 55.6 % (43.0-81.0); PLATELET COUNT (AUTO) 277 /CMM (150-450); RDW COEFFICIENT OF VARIATION 18.7 (11.5-15.0); RED BLOOD CELL COUNT(AUTO) 3.03 MIL/uL (4.5-6.0); WHITE BLOOD COUNT (AUTO) 14.7 K/uL (4.3-11.0)
[2017-01-19 08:00] VITALS: BP 133/51
[2017-01-19 08:00] LABS: EOSINOPHILS % (AUTO) 30.6 % (0.0-6.0)
[2017-01-19 08:30] LABS: CALCIUM, SERUM 8.4 mg/dL (8.5-10.1); CARBON DIOXIDE 28 mmol/L (21-32); CHLORIDE 103 mmol/L (98-107); CREATININE 1.9 mg/dL (0.6-1.3); GLUCOSE 100 mg/dL (74-106); PHOSPHORUS 3.8 mg/dL (2.5-4.9); POTASSIUM 4.9 mmol/L (3.5-5.1); SODIUM SERUM 137 mmol/L (136-145); UREA NITROGEN, BLOOD 52 mg/dL (7-18)
[2017-01-19] MEDS: PROSOURCE / PROSTAT (PYXIS) 30 ML UDC PO SCH (08:47)
[2017-01-19] MEDS: LEVOTHYROXINE SODIUM 88 MCG TABLET PO SCH (08:48)
[2017-01-19] MEDS: FINASTERIDE (5 MG) 5 MG TABLET PO SCH (08:48)
[2017-01-19] MEDS: LORATADINE 10 MG TABLET PO SCH (08:49)
[2017-01-19] MEDS: PANTOPRAZOLE 40 MG TABLET.DR PO SCH (08:49)
[2017-01-19] MEDS: MULTIVITAMIN/LUTEIN/MINERALS 1 TAB PO SCH ×2 (08:49→17:20)
[2017-01-19] MEDS: FOLIC ACID 1 MG TABLET PO SCH (08:49)
[2017-01-19] MEDS: ASPIRIN 81 MG TAB.CHEW PO SCH (08:49)
[2017-01-19] MEDS: CITALOPRAM HYDROBROMIDE 20 MG TABLET PO SCH (08:49)
[2017-01-19] MEDS: TAMSULOSIN 0.4 MG CAP.SR.24H PO SCH (08:49)
[2017-01-19] MEDS: METOPROLOL TARTRATE 50 MG TABLET PO SCH ×2 (08:52→17:21)
[2017-01-19] MEDS: hydrALAZINE HCL 50 MG TABLET PO SCH ×3 (08:52→17:22)
[2017-01-19] MEDS: CHOLECALCIFEROL (VITAMIN D 3) 400 UNIT TABLET PO SCH (08:53)
[2017-01-19] MEDS: GENTAMICIN 0.1% OINT 15 GM TUBE TP SCH ×2 (08:58→17:23)
[2017-01-19] MEDS: INSULIN DETEMIR 100 UNIT/ML CARTRIDGE SQ SCH (08:58)
[2017-01-19] MEDS: Z GUARD REMEDY 2 OZ OINT TP SCH (08:58)
[2017-01-19] MEDS: CHLORHEXIDINE GLUCONATE 4% 118 ML BOTTLE TP SCH (08:59)
[2017-01-19] MEDS ORDERED: FUROSEMIDE 80 MG TABLET PO SCH (09:00)
[2017-01-19] MEDS: FLUOCINONIDE 0.05% CREAM 60 GM TUBE TP SCH ×2 (09:00→17:23)
[2017-01-19] MEDS: ELIQUIS 5 MG PO SCH ×2 (09:06→17:20)
[2017-01-19 09:20] LABS: EOSINOPHILS % (MANUAL) 15 % (0-4); LYMPHOCYTES % (MANUAL) 11 % (16-48); MONOCYTES % (MANUAL) 2 % (0-11.0); NEUTROPHILS % (MANUAL) 72 (42-76)
[2017-01-19] MEDS: VANCOMYCIN 1 GM in IV D5W 250 ML IV SCH (12:11)
[2017-01-19] MEDS: INSULIN REGULAR, HUMAN 100 UNIT/ML 3 ML VIAL SQ PRN ×2 (13:13→17:24)
[2017-01-19] MEDS ORDERED: MUPIROCIN OINT 2% 22 GM TUBE TP SCH (14:00)
[2017-01-19] MEDS: SOD FERRIC GLUC 125 MG in IV NS 0.9% 100 ML IV SCH (15:13)
[2017-01-19 16:00] VITALS: BP 164/80
--- NOTE | 2017-01-19 16:30 | NUR ---
RN KARSTEN PALOMINO THE FIRST BREAKER FEEDER ARRANGED HOME HEALTH FOR THE PATIENT.
--- NOTE | 2017-01-19 17:20 | NUR ---
RN NOTES PATIENT WILL LEAVE WITH MID-LINE BY DR. ALEX DIAZ. PATTERN DEVELOPER ALEX, CHARGE NURSE NICOLETTE MORA.
[2017-01-19 17:22] VITALS: BP 164/80
[2017-01-19] MEDS ORDERED: predniSONE 20 MG TABLET PO SCH (19:00)
[2017-01-19] MEDS ORDERED: DAPTOMYCIN 500 MG in IV NS 0.9% 50 ML IV SCH (19:00)
--- NOTE | 2017-01-19 19:47 | NUR ---
RN NOTES DISCHARGE INSTRUCTIONS GIVEN TO PATIENT AND ABLE TO UNDERSTAND INSTRUCTIONS AND SIGNED DISCHARGE BELONGINGS LIST. PT. REFUSED PICTURES, SAILAJA WILL AWARE. PT. LEFT VIA GURNEY ACCOMPANIED WITH EMT'S IN STABLE CONDION Addendum: 01/19/17 at 1955 by WANDA FLORES RN NOT COMPLETE. RN NOTES DISCHARGE INSTRUCTIONS GIVEN TO PATIENT AND ABLE TO UNDERSTAND INSTRUCTIONS AND SIGNED DISCHARGE BELONGINGS LIST. PT. REFUSED PICTURES, SAILAJA WILL AWARE. PT. LEFT VIA GURNEY ACCOMPANIED WITH EMT'S IN STABLE CONDITION. NO SOB OR DISTRESS NOTED. VS CHECKED AND RECORDED. AND CHARGE NURSE AWARE.
== END 2017-01-19 18:51 | disposition home health service (06) | DRG 500 ==
LOC: ER 10:01 → TELE 12:45 → MED 01-14 08:41
PROVIDERS: ADMIT Internal Medicine; ATTEND Internal Medicine
PROC: 0QBP0ZZ Excision of Left Metatarsal, Open Approach (ICD-10-PCS; principal; 2017-01-15)
PROC: 0KBW0ZZ Excision of Left Foot Muscle, Open Approach (ICD-10-PCS; 2017-01-15)
PROC: 0KBW0ZZ Excision of Left Foot Muscle, Open Approach (ICD-10-PCS; 2017-01-17)
PROC: 05H633Z Insertion of Infusion Device into Left Subclavian Vein, Percutaneous Approach (ICD-10-PCS; 2017-01-17)
DX: T87.44 Infection of amputation stump, left lower extremity (principal); I21.4 Non-ST elevation (NSTEMI) myocardial infarction; N17.0 Acute kidney failure with tubular necrosis; R65.21 Severe sepsis with septic shock; A41.02 Sepsis due to Methicillin resistant Staphylococcus aureus; D68.59 Other primary thrombophilia; E43 Unspecified severe protein-calorie malnutrition; N18.4 Chronic kidney disease, stage 4 (severe); I50.32 Chronic diastolic (congestive) heart failure; J98.11 Atelectasis; L97.409 Non-pressure chronic ulcer of unspecified heel and midfoot with unspecified severity; M86.9 Osteomyelitis, unspecified; E11.22 Type 2 diabetes mellitus with diabetic chronic kidney disease; E11.621 Type 2 diabetes mellitus with foot ulcer; D69.6 Thrombocytopenia, unspecified; Y83.5 Amputation of limb(s) as the cause of abnormal reaction of the patient, or of later complication, without mention of misadventure at the time of the procedure; Y92.009 Unspecified place in unspecified non-institutional (private) residence as the place of occurrence of the external cause; D50.9 Iron deficiency anemia, unspecified; E03.9 Hypothyroidism, unspecified; E11.65 Type 2 diabetes mellitus with hyperglycemia; E78.5 Hyperlipidemia, unspecified; I25.10 Atherosclerotic heart disease of native coronary artery without angina pectoris; I73.9 Peripheral vascular disease, unspecified; I48.91 Unspecified atrial fibrillation; L97.529 Non-pressure chronic ulcer of other part of left foot with unspecified severity; N40.0 Benign prostatic hyperplasia without lower urinary tract symptoms; I12.9 Hypertensive chronic kidney disease with stage 1 through stage 4 chronic kidney disease, or unspecified chronic kidney disease; Z68.34 Body mass index [BMI] 34.0-34.9, adult; Z79.01 Long term (current) use of anticoagulants; Z79.4 Long term (current) use of insulin; Z79.82 Long term (current) use of aspirin; Z79.899 Other long term (current) drug therapy; E11.69 Type 2 diabetes mellitus with other specified complication; Z95.1 Presence of aortocoronary bypass graft; Z85.828 Personal history of other malignant neoplasm of skin; E66.9 Obesity, unspecified
CPT/HCPCS: 36415; 36600; 71010-TC; 73630-TC; 80048-TC; 80053-TC; 80076-TC; 80202-TC; 81000-TC; 82553-TC; 82728-TC; 82962-TC; 83540-TC; 83605-TC; 83735-TC; 84100-TC; 84484-TC; 85025-TC; 85385-TC; 85610-TC; 85652-TC; 85730-TC; 86140-TC; 87040-TC; 87070-TC; 87081-TC; 87086-TC; 93307-TC; 93971-TC; A4216; A4217; A4606; A6253; A6402; A6403; J0692; J0878; J1815; J1940; J2185; J2916; J3370; J3475; J7030; J7050; J7060; Q0163; Z7610

== ENCOUNTER 2017-01-22 13:57 | Inpatient (IN) | payer MEDICARE ==
[2017-01-22] VITALS: BP 143/62
[~2017-01-22] VITALS: Ht 175.3 cm; Wt 103.4 kg
--- NOTE | 2017-01-22 14:04 | NUR ---
GAETANO FROM [facility] DT EPISODE OF 02 DESARTURATION THIS AM,. PATIENT RECEIVED AAO4. APPEARS IN NO APPARENT DISTRESS. ON O2 VIA NC @3LPM.SATING 98%. SKIN IS WARM TO TOUCH AND NON DIAPHORETIC. AFEBRILE. VSS
[2017-01-22] MEDS ORDERED: FUROSEMIDE 40 MG/4 ML VIAL ONE (14:21)
[2017-01-22] MEDS ORDERED: NITROGLYCERIN PACKET 1 GM PACKET ONE (14:21)
[2017-01-22] MEDS ORDERED: FUROSEMIDE 40 MG/4 ML VIAL IV ONE (14:30)
[2017-01-22] MEDS ORDERED: NITROGLYCERIN PACKET 1 GM PACKET TOP ONE (14:30)
--- NOTE | 2017-01-22 14:30 | NUR ---
PT MEDICATED ORDERED
[2017-01-22 14:31] LABS: BASOPHILS # (AUTO) 0.1 /CMM (0.0-0.2); BASOPHILS % (AUTO) 0.4 % (0.0-2.0); EOSINOPHILS # (AUTO) 0.3 /CMM (0.0-0.7); EOSINOPHILS % (AUTO) 2.2 % (0.0-6.0); HEMATOCRIT 28 % (39-51); HEMOGLOBIN 8.9 g/dL (13.5-17.5); LYMPHOCYTES # (AUTO) 1.1 /CMM (0.8-4.8); LYMPHOCYTES % (AUTO) 7.7 % (20.0-44.0); MEAN CORPUSCULAR HEMOGLOBIN 29 PG (26.0-33.0); MEAN CORPUSCULAR HGB CONC 32 g/dl (31.0-36.0); MEAN CORPUSCULAR VOLUME 88 fL (80-96); MONOCYTES # (AUTO) 0.9 /CMM (0.1-1.30); MONOCYTES % (AUTO) 6.4 % (2.0-12.0); NEUTROPHILS # (AUTO) 12.3 /CMM (1.8-8.9); NEUTROPHILS % (AUTO) 83.3 % (43.0-81.0); PLATELET COUNT (AUTO) 339 /CMM (150-450); RED BLOOD CELL COUNT(AUTO) 3.13 MIL/uL (4.5-6.0); WHITE BLOOD COUNT (AUTO) 14.7 K/uL (4.3-11.0)
[2017-01-22 14:41] LABS: CALCIUM, SERUM 8.9 mg/dL (8.5-10.1); CARBON DIOXIDE 28 mmol/L (21-32); CHLORIDE 103 mmol/L (98-107); CREATININE 2.4 mg/dL (0.6-1.3); GLUCOSE 305 mg/dL (74-106); POTASSIUM 4.9 mmol/L (3.5-5.1); SODIUM SERUM 138 mmol/L (136-145); UREA NITROGEN, BLOOD 55 mg/dL (7-18)
[2017-01-22 14:45] LABS: INR 1.37 (0.87-1.13); PROTHROMBIN TIME 14.5 SECS (9.5-12.7)
[2017-01-22] MEDS ORDERED: LIRA0.6P2 SQ (14:45)
[2017-01-22] MEDS ORDERED: DAPT500V2 IV (14:45)
[2017-01-22 14:54] LABS: ALANINE AMINOTRANSFERASE 582 U/L (12-78); ALBUMIN 2.3 g/dL (3.4-5.0); ALKALINE PHOSPHATASE 168 U/L (46-116); ASPARTATE AMINOTRANSFERASE 583 U/L (15-37); B-TYPE NATRIURETIC PEPTIDE 51924 PG/ML (0-125); BILIRUBIN,DIRECT 0.4 mg/dL (0.0-0.2); BILIRUBIN,TOTAL 0.7 mg/dL (0.2-1.0); TOTAL PROTEIN, SERUM 6.7 g/dL (6.4-8.2)
[2017-01-22 15:03] LABS: TROPONIN I 2.796 ng/mL (0.00-0.056)
--- NOTE | 2017-01-22 15:26 | NUR ---
CALLED [facility], FIXED INTEREST DEALER VP [employer] WAS PAGED.
[2017-01-22] MEDS ORDERED: ASPIRIN 81 MG TAB.CHEW PO ONE (15:30)
[2017-01-22] MEDS ORDERED: ASPIRIN 81 MG TAB.CHEW ONE (15:31)
--- NOTE | 2017-01-22 15:34 | NUR ---
PATIENT DENIES ANY CHEST PAIN
--- NOTE | 2017-01-22 15:40 | NUR ---
CALLED [employer],MEAT PROCESSOR WAS PAGED.
--- NOTE | 2017-01-22 15:42 | NUR ---
TELE 115-1
--- NOTE | 2017-01-22 15:46 | NUR ---
REPORT GIVEN TO MARIYA FARAH FOR NERY
[2017-01-22 16:00] VITALS: BP 114/65
--- NOTE | 2017-01-22 16:22 | NUR ---
RN OPENING NOTES RECEIVED PATIENT VIA GURNEY TO ROOM 115-1. PATIENT IS IN STABLE CONDITION. PATIENT PLACED ON TELE. TELE READING AFIB BBB 96. PATIENT PLACED ON 02 AT 2LPM. PATIENT SATURATING ADEQUATELY. PATIENT DENIES SOB. DENIES. PAIN. PICTURES TO BE TAKEN AND PLACED IN CHART. PATIENT HAS LEFT UPPER ARM MIDLINE. WILL INTIATE ADMISSION PROTOCOL. WILL CONTINUE TO MONITOR PATIENT. FAMILY AT THE BEDSIDE. BED LOCKED IN THE LOWEST POSITION AT THIS TIME. SIDE RAILS UP X2. CALL LIGHT WITHIN REACH. WILL CONTINUE TO MONITOR ASSESS AND EDUCATE PATIENT.
[2017-01-22] MEDS ORDERED: ACETAMINOPHEN 325 MG TABLET PO PRN (16:30)
[2017-01-22] MEDS ORDERED: ONDANSETRON HCL/PF 4 MG/2 ML VIAL IVP PRN (16:30)
[2017-01-22] MEDS ORDERED: HYDROCODONE/APAP 5/325MG 1 EACH TABLET PO PRN (16:30)
[2017-01-22] MEDS ORDERED: ZOLPIDEM TARTRATE 5 MG TABLET PO PRN (16:30)
[2017-01-22] MEDS ORDERED: MAG HYDROX/AL HYDROX/SIMETH 30 ML UDC PO PRN (16:30)
[2017-01-22] MEDS ORDERED: MAGNESIUM HYDROXIDE 30 ML UDC PO PRN (16:30)
[2017-01-22] MEDS ORDERED: DEXTROSE 50%-WATER 50 ML DISP.SYRIN IV PRN (16:30)
[2017-01-22] MEDS ORDERED: APIXABAN 5 MG TABLET PO SCH (17:00)
[2017-01-22] MEDS: hydrALAZINE HCL 50 MG TABLET PO SCH (18:06)
[2017-01-22] MEDS: FUROSEMIDE 40 MG/4 ML VIAL IV SCH (18:06)
[2017-01-22] MEDS: FERROUS SULFATE (325 MG) 325 MG/TAB TABLET PO SCH (18:06)
[2017-01-22] MEDS: FOLIC ACID 1 MG TABLET PO SCH (18:06)
[2017-01-22] MEDS: INSULIN REGULAR, HUMAN 100 UNIT/ML 3 ML VIAL SQ PRN (18:10)
[2017-01-22] MEDS: BLOOD SUGAR DIAGNOSTIC 1 EACH STRIP VI SCH ×2 (18:11→21:34)
--- NOTE | 2017-01-22 18:11 | NUR ---
RN NON ADMIN NOTES HYDRALAZINE HELD. BP 114/65. LASIX WAS ALREADY GIVEN.
[2017-01-22] MEDS ORDERED: ELIQUIS 5 MG PO SCH (18:30)
[2017-01-22 19:00] VITALS: BP 149/75
[2017-01-22 20:00] VITALS: BP 149/75
--- NOTE | 2017-01-22 20:00 | NUR ---
RN INITIAL TELE NOTES RECEIVED PATIENT N/A RESTING IN BED, AOX3, ABLE TO VERBALIZE NEEDS. PATIENT IS IN STABLE CONDITION. PATIENT PLACED ON TELE. TELE READING AFIB BBB 96. TROPONIN UPON ENDORSEMENT IS 2.796H, WITH REPEAT TROPONIN @ 2200, DONE RESULTS OBTAINED TRENDING DOWN TO 2.254H, CHARGE NURSE NOTIFIED, WE WILL CONT TO MONITOR. PATIENT PLACED ON 02 AT 2LPM. PATIENT SATURATING ADEQUATELY. PATIENT DENIES SOB. DENIES. PAIN. PATIENT HAS LEFT UPPER ARM MIDLINE. WILL CONTINUE TO MONITOR PATIENT. FAMILY AT THE BEDSIDE. BED LOCKED IN THE LOWEST POSITION AT THIS TIME. SIDE RAILS UP X2. CALL LIGHT WITHIN REACH. WILL CONTINUE TO MONITOR ASSESS AND EDUCATE PATIENT.
--- NOTE | 2017-01-22 20:09 | NUR ---
RN CLOSING NOTE PATIENT RESTING COMFORTABLY IN BED AWAKE WITH EYES OPEN. PATIENT IS AOX4. DENIES SOB. DENIES PAIN. PATIENT IS ON 3LPM SATURATING ADEQUATELY. ALL ADMISSION PROTOCOL COMPLETED. ALL NEEDS MET. ALL MEDS GIVEN APPROPRIATE. BED LOCKED IN THE LOWEST POSITION WITH SIDE RAILS X2. CALL LIGHT WITHIN REACH. REPORT GIVEN TO NIGHT RN FOR NERY.
[2017-01-22 20:43] VITALS: BP 149/75
[2017-01-22] MEDS: TAMSULOSIN 0.4 MG CAP.SR.24H PO SCH (21:26)
[2017-01-22] MEDS: METOPROLOL TARTRATE 50 MG TABLET PO SCH (21:26)
[2017-01-22] MEDS: ATORVASTATIN 10 MG TABLET PO SCH (21:26)
[2017-01-22] MEDS: *INSULIN REGULAR(HUMULIN R)HUM 100 UNIT/ML VIAL SQ PRN (21:37)
[2017-01-23] VITALS (8 sets, daily range): BP systolic 110–149; BP diastolic 61–81
[2017-01-23 06:30] LABS: BASOPHILS % (AUTO) 0.3 % (0.0-2.0); EOSINOPHILS # (AUTO) 2.3 /CMM (0.0-0.7); EOSINOPHILS % (AUTO) 15.9 % (0.0-6.0); HEMATOCRIT 26 % (39-51); HEMOGLOBIN 8.3 g/dL (13.5-17.5); LYMPHOCYTES % (AUTO) 6.5 % (20.0-44.0); MEAN CORPUSCULAR HEMOGLOBIN 28 PG (26.0-33.0); MEAN CORPUSCULAR HGB CONC 32 g/dl (31.0-36.0); MEAN CORPUSCULAR VOLUME 89 fL (80-96); MONOCYTES # (AUTO) 0.8 /CMM (0.1-1.30); MONOCYTES % (AUTO) 5.4 % (2.0-12.0); NEUTROPHILS # (AUTO) 10.6 /CMM (1.8-8.9); NEUTROPHILS % (AUTO) 71.9 % (43.0-81.0); PLATELET COUNT (AUTO) 296 /CMM (150-450); RDW COEFFICIENT OF VARIATION 19.5 (11.5-15.0); RED BLOOD CELL COUNT(AUTO) 2.93 MIL/uL (4.5-6.0); WHITE BLOOD COUNT (AUTO) 14.7 K/uL (4.3-11.0)
--- NOTE | 2017-01-23 06:30 | NUR ---
RN CLOSING NOTE ENDORSED PATIENT RESTING COMFORTABLY IN BED AWAKE WITH EYES OPEN. PATIENT IS AOX4. DENIES SOB. DENIES PAIN. PATIENT IS ON 3LPM SATURATING ADEQUATELY. ALL NEEDS MET. ALL MEDS GIVEN APPROPRIATE. BED LOCKED IN THE LOWEST POSITION WITH SIDE RAILS X2. CALL LIGHT WITHIN REACH. REPORT GIVEN TO NIGHT RN FOR NERY.
[2017-01-23 06:49] LABS: CHOLESTEROL 80 mg/dL (<200); HDL CHOLESTEROL 28 mg/dL (40-60); LDL 45 mg/dL (0-99); TRIGLYCERIDES 60 mg/dL (30-150)
[2017-01-23 06:58] LABS: CALCIUM, SERUM 8.8 mg/dL (8.5-10.1); CARBON DIOXIDE 30 mmol/L (21-32); CHLORIDE 104 mmol/L (98-107); CREATININE 2.4 mg/dL (0.6-1.3); GLUCOSE 184 mg/dL (74-106); MAGNESIUM 2.1 mg/dL (1.8-2.4); PHOSPHORUS 4.5 mg/dL (2.5-4.9); POTASSIUM 4.7 mmol/L (3.5-5.1); SODIUM SERUM 141 mmol/L (136-145); UREA NITROGEN, BLOOD 57 mg/dL (7-18)
[2017-01-23] MEDS ORDERED: PANTOPRAZOLE 40 MG TABLET.DR PO SCH (07:30)
--- NOTE | 2017-01-23 07:30 | NUR ---
JACQUARD PLATE MAKER OPENING RECEIVED PATIENT A/OX4 DENIES SOB, DIFFICULTY BREATHING OR PAIN AT THIS TIME. PATIENT IS ON 3 LPM NC TOLERATING WELL. TELE AFIB WITH BBB HR 80. PATIENT STATES NO NEEDS AT THIS TIME AND APPEARS STABLE. ALL NEEDS IN REACH. PATIENT SITTING IN CHAIR FOR INCREASED COMFORT AT THIS TIME. WILL ROUND Q2H OR LESS PER NEEDS.
[2017-01-23] MEDS: FINASTERIDE (5 MG) 5 MG TABLET PO SCH (08:21)
[2017-01-23] MEDS: FUROSEMIDE 40 MG/4 ML VIAL IV SCH ×2 (08:21→17:51)
[2017-01-23] MEDS: CHOLECALCIFEROL (VITAMIN D 3) 400 UNIT TABLET PO SCH (08:22)
[2017-01-23] MEDS: PANTOPRAZOLE 40 MG TABLET.DR PO SCH (08:22)
[2017-01-23] MEDS: ASPIRIN 81 MG TAB.CHEW PO SCH (08:22)
[2017-01-23] MEDS: LEVOTHYROXINE SODIUM 88 MCG TABLET PO SCH (08:22)
[2017-01-23] MEDS: predniSONE 20 MG TABLET PO SCH (08:22)
[2017-01-23] MEDS: FERROUS SULFATE (325 MG) 325 MG/TAB TABLET PO SCH ×2 (08:22→17:51)
[2017-01-23] MEDS: METOPROLOL TARTRATE 50 MG TABLET PO SCH ×2 (08:23→21:21)
[2017-01-23] MEDS: CITALOPRAM HYDROBROMIDE 20 MG TABLET PO SCH (08:28)
[2017-01-23] MEDS: BLOOD SUGAR DIAGNOSTIC 1 EACH STRIP VI SCH ×4 (08:29→21:21)
[2017-01-23] MEDS: hydrALAZINE HCL 50 MG TABLET PO SCH ×3 (08:30→17:51)
[2017-01-23] MEDS: INSULIN REGULAR, HUMAN 100 UNIT/ML 3 ML VIAL SQ PRN ×3 (08:41→17:57)
[2017-01-23] MEDS: Z GUARD REMEDY 2 OZ OINT TP PRN ×2 (08:42→12:53)
[2017-01-23 08:56] LABS: ALBUMIN 2.1 g/dL (3.4-5.0); BILIRUBIN,DIRECT 0.2 mg/dL (0.0-0.2); BILIRUBIN,TOTAL 0.5 mg/dL (0.2-1.0); TOTAL PROTEIN, SERUM 6.8 g/dL (6.4-8.2)
[2017-01-23] MEDS ORDERED: DAPTOMYCIN 500 MG/VIAL VIAL IV SCH ×2 (09:00)
--- NOTE | 2017-01-23 09:15 | NUR ---
LANDSCAPE TECHNICIAN NOTES DR COULTER AT BEDSIDE. PER MD ORDER CONSULT FOR DR HARRIS. DR HARRIS PAGED FOR CONSULT.
--- NOTE | 2017-01-23 09:27 | NUR ---
LIME BOILER NOTES PATIENT HEPARIN PROTOCOL SHEET FAXED TO PHARMACY
--- NOTE | 2017-01-23 10:25 | NUR ---
CYTOTECHNOLOGIST/CYTOLOGY SUPERVISOR NOTES DR SALMON MESSAGE LEFT TO NOTIFY PATIENT ADMITTED. SEEN PATIENT THIS WEEK FOR DEBRIDEMENT.
--- NOTE | 2017-01-23 10:50 | NUR ---
DISPENSARY CLERK NOTES CALLED PHARMACY TO CHECK ON HEPARIN. THEY WILL BRING
[2017-01-23] MEDS: HEPARIN INFUSION/D5W 500 ML IV PRN (11:43)
--- NOTE | 2017-01-23 11:47 | NUR ---
MARINE PIPE WELDER NOTES HEPARIN DRIP STARTED ONCE PROVIDED BY PHARMACY. PER PROTOCOL STARTED AT 1200U/HOUR. ASAEL RASHID
--- NOTE | 2017-01-23 16:38 | NUR ---
PLUMBING ASSEMBLER NOTES MESSAGE TO DR COULTER OFFICE LEFT MESSAGE WITH ANSWERING SERVICE TO CONFIRM D/C OF ELGIN
--- NOTE | 2017-01-23 17:45 | NUR ---
PRODUCER ARBORIST MANAGER NOTES MESSAGE LEFT TO DR KENDRICK TO NOTIFY OF CRITICAL BLOOD GLUCOSE.
[2017-01-23] MEDS: FOLIC ACID 1 MG TABLET PO SCH (17:51)
--- NOTE | 2017-01-23 18:10 | NUR ---
HORSES OR MULES TEAMSTER NOTES SPOKE WITH DR COULTER AND CONFIRMED PER MD DISCONTINUE ELIQUIS AT THIS TIME TO PREPARE PATIENT FOR POSSIBLE CARDIAC CATH.
--- NOTE | 2017-01-23 18:26 | NUR ---
AIRCRAFT METALSMITH NOTES PER DR KENDRICK CONTINUE PATIENT HOME LONG ACTING INSULIN SHOWN ON MED RECON. OK TO CHANGE TO LEVEMIR WE DO NOT CARRY LANTUS. 35 UNITS 0730 AND 45 UNITS HS. PER MD LOVELL TO RE CHECK BLOOD SUGAR LEVEL AT NEXT SCHEDULED TIME
--- NOTE | 2017-01-23 18:54 | NUR ---
MS RN NOTES CALLING LAB TO CHECK ON PTT RESULTS
--- NOTE | 2017-01-23 18:57 | NUR ---
CLAY MAKER CLOSING PATIENT STABLE. ALL DUE MEDS GIVEN AND ALL NEEDS MET. ALL NEEDS IN REACH. PATIENT SITTING AT BEDSIDE AND IN POSITION OF COMFORT. PATIENT NOTIFIED WE WILL CONTINUE LONG ACTING INSULIN ORDERED. CHARLIE FROM LAB CALLED AND SAID THEY ARE HAVING DIFFICULTY WITH RESULTS FOR PTT THEY WILL F/U STAT. CARE WILL BE ENDORSED TO RN FOR NERY. PATIENT TOLERATING 2LPM NC AND HEPARIN RUNNING ORDERED
--- NOTE | 2017-01-23 19:00 | NUR ---
FAMILY SUPPORT COORDINATOR NOTES NOTIFIED CHARGE GAGAN AND NIGHT CHARGE LAB IS STATING DIFFICULTY GETTING RESULTS POSTED FOR PTT
--- NOTE | 2017-01-23 19:20 | NUR ---
RN NOTES RECEIVED PT AWAKE SITTING ON A CHAIR NO ACUTE RESP DISTRESS WITH O2 3LPM VIA NC TOLERATED WELL SATING 98% ALERT ORIENTED X 4 ABLE TO MAKE KNOWN NEEDS , JOKES AROUND THE NURSES. ON TELE MONITOR REVEALS A-FIB/ A-FLUTTER HR 81 DENIES ANY CHEST PAIN OR ANY PAIN AT THIS TIME. IV SITE ON EMILIA MIDLINE WITH HEPARIN DRIP @ 1200 UNITS/HR= 24 ML/HR INTACT AND PATENT. STILL WAITING FOR PTT RESULT PER PREVIOUS NURSE. ASSISTED TO THE BATHROOM FOR B/B. KEPT PT CLEAN AND DRY. WILL FREQ. MONITOR.
--- NOTE | 2017-01-23 20:05 | NUR ---
RN NOTES RECEIVED PTT RESULT 39 ACCORDING TO PROTOCOL TO INCREASE 200 UNITS. INCREASED HEPARIN DRIP FROM 1200 UNITS TO 1400 UNITS VERIFIED BY QIAN CHRISTY RN. WILL CONTINUE TO MONITOR.
[2017-01-23] MEDS: TAMSULOSIN 0.4 MG CAP.SR.24H PO SCH (21:21)
[2017-01-23] MEDS: ATORVASTATIN 10 MG TABLET PO SCH (21:21)
[2017-01-23] MEDS: INSULIN DETEMIR 100 UNIT/ML CARTRIDGE SQ SCH (21:25)
[2017-01-23] MEDS: *INSULIN REGULAR(HUMULIN R)HUM 100 UNIT/ML VIAL SQ PRN (21:27)
--- NOTE | 2017-01-23 21:50 | NUR ---
RN NOTES CALLED AND SPOKE WITH DR. QUINTANILLA INFORMED ABOUT BS 521 MG/DL LEVEMIR 45 UNITS AND REGULAR INSULIN 10 UNITS GIVEN ORDERED. PER MD TO FOLLOW PROTOCOL. PT IS ASYMPTOMATIC AT THIS TIME REMAINED IN BASELINE MENTAL STATUS WILL CONTINUE TO MONITOR
[2017-01-24] VITALS: BP 149/75
--- NOTE | 2017-01-24 02:35 | NUR ---
RN NOTES RECEIVED PTT = 44. PROTOCOL INITIATED. INSULIN DRIP CHANGES FROM 1400 UNITS/HR TO 1600 UNITS/ HR, NO ACTIVE BLEEDING SHOWS. WILL CLOSELY MONITOR
[2017-01-24 04:00] VITALS: BP 136/59
--- NOTE | 2017-01-24 06:43 | NUR ---
RN NOTES PT ASLEEP WELL ON BED. WOKE UP TO URINATE ONLY. COMPLIANT WITH CARE. DENIES PAIN NOR CHEST PAIN. CONTINUE WITH HEPARIN DRIP AT 1600 UNITS/HR ( 32 ML/HR) IV SITE ON EMILIA MIDLINE INTACT AND PATENT. AFEBRILE. VS WNL. ALL NEEDS ATTENDED. ASSISTED TO ADLS GOING TO THE BATHROOM SKIN ASSESSMENT RENDERED PHOTO TAKEN. WILL ENDORSED CONTINUITY OF CARE TO AM NURSE.
--- NOTE | 2017-01-24 07:00 | NUR ---
RN NOTES RECEIVED PT ON BED , A/Ox4, RESPIRATION EVEN AND UNLABORED, NO SOB NOTED, O2 3LPM VIA NC TOLERATED WELL SATING 98%, ON TELE MONITOR REVEALS A-FIB/ A-FLUTTER HR 80'S DENIES ANY CHEST PAIN OR ANY PAIN AT THIS TIME.LEFT UPPER MIDLINE CDI, WITH HEPARIN DRIP @ 1600 UNITS/HR , NO SIGN OF COMPLICATION NOTED, SR UP x3, CALL LIGHT WITHIN EASY REACH , CONTINUE TO MONITOR PT CLOSELY AND NOTIFY MD FOR ANY SIGNIFICANT CHANGES
[2017-01-24] MEDS: BLOOD SUGAR DIAGNOSTIC 1 EACH STRIP VI SCH ×4 (07:30→21:56)
--- NOTE | 2017-01-24 07:30 | NUR ---
RN NOTES PT IS NPO THIS AM FOR US OF ABDOMEN.
[2017-01-24] MEDS: HEPARIN INFUSION/D5W 500 ML IV PRN ×2 (07:52→23:59)
[2017-01-24 08:00] VITALS: BP 135/77
[2017-01-24 08:17] LABS: BASOPHILS # (AUTO) 0.4 /CMM (0.0-0.2); BASOPHILS % (AUTO) 2.5 % (0.0-2.0); HEMATOCRIT 27 % (39-51); HEMOGLOBIN 8.7 g/dL (13.5-17.5); LYMPHOCYTES # (AUTO) 1.4 /CMM (0.8-4.8); LYMPHOCYTES % (AUTO) 9.1 % (20.0-44.0); MEAN CORPUSCULAR HEMOGLOBIN 28 PG (26.0-33.0); MEAN CORPUSCULAR HGB CONC 32 g/dl (31.0-36.0); MEAN CORPUSCULAR VOLUME 89 fL (80-96); MONOCYTES # (AUTO) 1.4 /CMM (0.1-1.30); MONOCYTES % (AUTO) 9.3 % (2.0-12.0); NEUTROPHILS # (AUTO) 11.7 /CMM (1.8-8.9); NEUTROPHILS % (AUTO) 79.1 % (43.0-81.0); PLATELET COUNT (AUTO) 256 /CMM (150-450); RDW COEFFICIENT OF VARIATION 19.2 (11.5-15.0); RED BLOOD CELL COUNT(AUTO) 3.08 MIL/uL (4.5-6.0); WHITE BLOOD COUNT (AUTO) 14.8 K/uL (4.3-11.0)
[2017-01-24 08:32] LABS: ALANINE AMINOTRANSFERASE 507 U/L (12-78); ALBUMIN 2.1 g/dL (3.4-5.0); ALKALINE PHOSPHATASE 163 U/L (46-116); ASPARTATE AMINOTRANSFERASE 185 U/L (15-37); BILIRUBIN,DIRECT 0.1 mg/dL (0.0-0.2); BILIRUBIN,TOTAL 0.4 mg/dL (0.2-1.0); CALCIUM, SERUM 8.9 mg/dL (8.5-10.1); CARBON DIOXIDE 30 mmol/L (21-32); CHLORIDE 102 mmol/L (98-107); CREATININE 2.2 mg/dL (0.6-1.3); GLUCOSE 317 mg/dL (74-106); MAGNESIUM 2.1 mg/dL (1.8-2.4); PHOSPHORUS 4.3 mg/dL (2.5-4.9); POTASSIUM 4.7 mmol/L (3.5-5.1); SODIUM SERUM 138 mmol/L (136-145); TOTAL PROTEIN, SERUM 6.9 g/dL (6.4-8.2); UREA NITROGEN, BLOOD 63 mg/dL (7-18)
[2017-01-24] MEDS: PANTOPRAZOLE 40 MG TABLET.DR PO SCH (09:23)
[2017-01-24] MEDS: FUROSEMIDE 40 MG/4 ML VIAL IV SCH ×2 (09:23→16:32)
[2017-01-24] MEDS: LEVOTHYROXINE SODIUM 88 MCG TABLET PO SCH (09:23)
--- NOTE | 2017-01-24 10:00 | NUR ---
RN NOTES HEPARIN GTT INCREASED TO 1800 UNITS /HR , PTT=40. CONTINUE TO MONITOR PT CLOSELY AND FOLLOW HEPARIN GTT PROTOCOL .
[2017-01-24] MEDS ORDERED: DAPTOMYCIN 500 MG in IV NS 0.9% 50 ML IV SCH (11:00)
[2017-01-24 12:00] VITALS: BP 145/76
[2017-01-24] MEDS: INSULIN DETEMIR 100 UNIT/ML CARTRIDGE SQ SCH ×2 (12:03→22:00)
[2017-01-24] MEDS: FINASTERIDE (5 MG) 5 MG TABLET PO SCH (12:06)
[2017-01-24] MEDS: CITALOPRAM HYDROBROMIDE 20 MG TABLET PO SCH (12:06)
[2017-01-24] MEDS: ASPIRIN 81 MG TAB.CHEW PO SCH (12:06)
[2017-01-24] MEDS: predniSONE 20 MG TABLET PO SCH (12:06)
[2017-01-24] MEDS: hydrALAZINE HCL 50 MG TABLET PO SCH ×3 (12:07→16:33)
[2017-01-24] MEDS: METOPROLOL TARTRATE 50 MG TABLET PO SCH ×2 (12:07→21:56)
[2017-01-24] MEDS: FERROUS SULFATE (325 MG) 325 MG/TAB TABLET PO SCH ×2 (12:07→16:34)
[2017-01-24] MEDS: CHOLECALCIFEROL (VITAMIN D 3) 400 UNIT TABLET PO SCH (12:08)
[2017-01-24] MEDS: INSULIN REGULAR, HUMAN 100 UNIT/ML 3 ML VIAL SQ PRN ×2 (12:18→16:36)
--- NOTE | 2017-01-24 13:00 | NUR ---
RN NOTES MORNING HYDRALAZINE GIVEN LATE DUE TO MORNING NPO ORDER , 1300 HYDRALAZINE HELD .
--- NOTE | 2017-01-24 13:57 | NUR ---
WOUND CARE CONSULT: PT NOT SEEN YET FOR SKIN ASSESSMENT DUE TO PT SLEEPING SOUNDLY. PER RN, PT STATED NEEDS REST. PT TO BE SEEN FOR SKIN ASSESSMENT PT CONDITION PERMITS. DR VAUGHN SEEING PT FOR LOWER EXTREMITY WOUND. ALL SKIN PROTECTION MEASURES IN PLACE. DISCUSSED WITH NURSING STAFF. PT ON MACIEJ ISOFLEX LOW AIRLOSS BED. MD IN AGREEMENT WITH PLAN OF CARE.
[2017-01-24 16:00] VITALS: BP 114/58
[2017-01-24] MEDS: FOLIC ACID 1 MG TABLET PO SCH (16:34)
[2017-01-24] MEDS: ZINC SULFATE 220 MG CAPSULE PO SCH (16:35)
--- NOTE | 2017-01-24 18:16 | NUR ---
RN NOTES PT SITTING UP ON A CHAIR , RESPIRATION EVEN AND UNLABORED, HEPARIN GTT AT 1800 UNITS /HR RUNNING VIA L UPPER ARM MIDLINE, NO COMPILATION NOTED, NO SIGNIFICANT CHANGES NOTED ON THIS SHIFT. WILL ENDORSE TO PLATEN PRESS OPERATOR APPRENTICE NURSE FOR CONTINUITY OF CARE.
--- NOTE | 2017-01-24 18:17 | NUR ---
01/24/[address] GUAN PT WILL NEED HIGHER LEVEL OF CARE FOR HEART CATH, PT IS SCHEDULED AT [facility] IT PROGRAM MANAGER AT 1500, SPOKE WITH YVES SWAN [phone] AND CONFIRMED PT IS ACCEPTED. ARRANGED TRANSPORTATION VIA [facility] PROJECT SPECIALIST AT 1215. NURSE TO GIVE REPORT TO [phone] Addendum: 01/24/17 at 1818 by LILI TRENT CMG Amended: Links added.
--- NOTE | 2017-01-24 19:10 | NUR ---
RN NOTES PT SITTING ON A CHAIR NO ACUTE RESP DISTRESS WITH O2 3LPM VIA NC TOLERATED WELL SATING 100% ALERT ORIENTED X 4 VERBALIZED NEEDS AND TELLS STORY ABOUT HIS EXPERIENCE. TELE MONITOR REVEALS A-FIB/ A-FLUTTER HR 69 DENIES CHEST PAIN OR ANY PAIN AT THIS TIME. IV SITE ON EMILIA MIDLINE WITH HEPARIN DRIP @ 1800 UNITS/HR= 32 ML/HR LAST PTT= 61 IV SITE INTACT AND PATENT. NO ACTIVE BLEEDING NOTED. BED LOCKED AND KEPT IN LOWEST POSSIBLE POSITION. PT ABLE TO STAND AND TRANSFER WITH MINIMAL ASSIST. KEPT PT CLEAN AND COMFORTABLE IN BED. WILL CONTINUE TO MONITOR.
[2017-01-24 20:00] VITALS: BP_SYST 127; BP_SYST 129; BP_DIAS 41; BP_DIAS 59
[2017-01-24] MEDS: TAMSULOSIN 0.4 MG CAP.SR.24H PO SCH (21:56)
[2017-01-24] MEDS: ATORVASTATIN 10 MG TABLET PO SCH (21:56)
[2017-01-24] MEDS: *INSULIN REGULAR(HUMULIN R)HUM 100 UNIT/ML VIAL SQ PRN (22:01)
[2017-01-24] MEDS ORDERED: HEPARIN INFUSION/D5W 500 ML IV ONE (23:53)
[2017-01-25 04:00] VITALS: BP 138/69
[2017-01-25 06:31] LABS: EOSINOPHILS % (AUTO) 0.1 % (0.0-6.0); HEMATOCRIT 27 % (39-51); HEMOGLOBIN 8.6 g/dL (13.5-17.5); LYMPHOCYTES # (AUTO) 0.7 /CMM (0.8-4.8); LYMPHOCYTES % (AUTO) 5.3 % (20.0-44.0); MEAN CORPUSCULAR HEMOGLOBIN 28 PG (26.0-33.0); MEAN CORPUSCULAR HGB CONC 32 g/dl (31.0-36.0); MEAN CORPUSCULAR VOLUME 89 fL (80-96); MONOCYTES # (AUTO) 0.8 /CMM (0.1-1.30); MONOCYTES % (AUTO) 6.3 % (2.0-12.0); NEUTROPHILS # (AUTO) 11.9 /CMM (1.8-8.9); NEUTROPHILS % (AUTO) 88.3 % (43.0-81.0); PLATELET COUNT (AUTO) 296 /CMM (150-450); RED BLOOD CELL COUNT(AUTO) 3.05 MIL/uL (4.5-6.0); WHITE BLOOD COUNT (AUTO) 13.5 K/uL (4.3-11.0)
[2017-01-25 06:42] LABS: INR 1.14 (0.87-1.13); PROTHROMBIN TIME 12.3 SECS (9.5-12.7)
[2017-01-25 06:46] LABS: ALANINE AMINOTRANSFERASE 392 U/L (12-78); ALBUMIN 2.1 g/dL (3.4-5.0); ALKALINE PHOSPHATASE 151 U/L (46-116); ASPARTATE AMINOTRANSFERASE 68 U/L (15-37); BILIRUBIN,TOTAL 0.4 mg/dL (0.2-1.0); CARBON DIOXIDE 32 mmol/L (21-32); CHLORIDE 100 mmol/L (98-107); CREATININE 2.2 mg/dL (0.6-1.3); PHOSPHORUS 4.6 mg/dL (2.5-4.9); POTASSIUM 4.5 mmol/L (3.5-5.1); SODIUM SERUM 135 mmol/L (136-145); TOTAL PROTEIN, SERUM 6.7 g/dL (6.4-8.2); UREA NITROGEN, BLOOD 72 mg/dL (7-18)
[2017-01-25] MEDS ORDERED: HEPARIN SODIUM, PORCINE 5000 UNITS/1 ML VIAL IV ONE (07:00)
[2017-01-25 07:10] LABS: GLUCOSE 418 mg/dL (74-106)
[2017-01-25 07:11] LABS: TROPONIN I 0.473 ng/mL (0.00-0.056)
--- NOTE | 2017-01-25 07:15 | NUR ---
RN NOTES PTT=[address] NEELY MADE AWARE. PT ASLEEP AT THIS TIME. REMAINED IN STABLE CONDITION. DENIES PAIN. NO ACUTE BLEEDING ENDORSED CONTINUITY OF CARE TO AM NURSE.
[2017-01-25] MEDS: BLOOD SUGAR DIAGNOSTIC 1 EACH STRIP VI SCH ×3 (07:30→17:30)
[2017-01-25 08:00] VITALS: BP 145/76
--- NOTE | 2017-01-25 08:15 | NUR ---
RN NOTE SPOKE TO DR NEELY REGARDING THE HEPARIN BOLUS AND DRIP, HE STATED TO DISCONTINUE BOTH. WILL CARRY OUT THE ORDER. WILL MONITOR PT CLOSELY.
--- NOTE | 2017-01-25 08:36 | NUR ---
WOUND CARE CONSULT: PT PRESENTS WITH INTACT BLISTERS TO LEFT ARM, PRESENT ON ADMISSION WELL ULCERS TO LEFT FOOT AND HEEL, ALSO PRESENT ON ADMISSION. DEFER TO DPM FOR FOOT/HEEL ULCERS. DEFER TO MD FOR BLISTERS TO LEFT ARM. RECOMMENDATIONS MADE FOR SKIN PROTECTION. DISCUSSED WITH NURSING STAFF. PT ON MACIEJ ISOFLEX LOW AIRLOSS BED. PT ABLE TO REPOSITION HIMSELF IN BED. WILL SEE PRN. George Hernandez IN AGREEMENT WITH PLAN OF CARE. Addendum: 01/25/17 at 0838 by DEBRA RUIZ WNDNU Amended: Links added.
[2017-01-25] MEDS: LEVOTHYROXINE SODIUM 88 MCG TABLET PO SCH (08:40)
[2017-01-25] MEDS: FERROUS SULFATE (325 MG) 325 MG/TAB TABLET PO SCH ×2 (08:41→17:00)
[2017-01-25] MEDS: ASPIRIN 81 MG TAB.CHEW PO SCH (08:41)
[2017-01-25] MEDS: CHOLECALCIFEROL (VITAMIN D 3) 400 UNIT TABLET PO SCH (08:41)
[2017-01-25] MEDS: FINASTERIDE (5 MG) 5 MG TABLET PO SCH (08:41)
[2017-01-25] MEDS: ZINC SULFATE 220 MG CAPSULE PO SCH ×2 (08:41→17:00)
[2017-01-25] MEDS: PANTOPRAZOLE 40 MG TABLET.DR PO SCH (08:41)
[2017-01-25] MEDS: predniSONE 20 MG TABLET PO SCH (08:42)
[2017-01-25] MEDS: CITALOPRAM HYDROBROMIDE 20 MG TABLET PO SCH (08:42)
[2017-01-25] MEDS: hydrALAZINE HCL 50 MG TABLET PO SCH ×3 (08:42→17:00)
[2017-01-25 08:44] VITALS: BP 145/76
[2017-01-25] MEDS: METOPROLOL TARTRATE 50 MG TABLET PO SCH (08:44)
[2017-01-25] MEDS: FUROSEMIDE 40 MG/4 ML VIAL IV SCH ×2 (08:45→17:00)
[2017-01-25] MEDS ORDERED: HYDROGEL DRESSING 90 GM TUBE TP SCH (09:00)
[2017-01-25] MEDS ORDERED: HYDROGEL DRESSING 90 GM TUBE TP PRN (09:00)
[2017-01-25] MEDS: INSULIN DETEMIR 100 UNIT/ML CARTRIDGE SQ SCH (10:23)
[2017-01-25] MEDS ORDERED: ACETYLCYSTEINE 20% ORAL SOLN 6,000 MG/30 ML VIAL PO SCH (13:00)
[2017-01-25] MEDS ORDERED: Sodium Bicarbonate 50 MEQ in IV 1/2NS 1000 ML 1,000 ML IV PRN (13:00)
--- NOTE | 2017-01-25 13:05 | NUR ---
RN NOTE PT IS BEING TRANSFERRED TO [facility] FOR CARDIAC CATH,REPORT GIVEN TO LI MERAZ AT [facility] #[phone], PT STABLE. BELONGINGS GIVEN TO PT, PAPERS GIVEN TO EMT PERSONNEL.
[2017-01-25] MEDS: FOLIC ACID 1 MG TABLET PO SCH (17:00)
== END 2017-01-25 18:05 | disposition short-term general hospital (02) | DRG 280 ==
LOC: ER 14:00 → TELE1 15:52 → MEDSG1 01-24 09:36
PROVIDERS: ADMIT Internal Medicine; ATTEND Internal Medicine
PROC: 05H633Z Insertion of Infusion Device into Left Subclavian Vein, Percutaneous Approach (ICD-10-PCS; principal; 2017-01-22)
DX: I21.4 Non-ST elevation (NSTEMI) myocardial infarction (principal); J96.01 Acute respiratory failure with hypoxia; E43 Unspecified severe protein-calorie malnutrition; I50.43 Acute on chronic combined systolic (congestive) and diastolic (congestive) heart failure; N18.4 Chronic kidney disease, stage 4 (severe); D68.59 Other primary thrombophilia; E11.22 Type 2 diabetes mellitus with diabetic chronic kidney disease; E11.621 Type 2 diabetes mellitus with foot ulcer; I13.0 Hypertensive heart and chronic kidney disease with heart failure and stage 1 through stage 4 chronic kidney disease, or unspecified chronic kidney disease; L97.429 Non-pressure chronic ulcer of left heel and midfoot with unspecified severity; I73.9 Peripheral vascular disease, unspecified; D50.9 Iron deficiency anemia, unspecified; D72.829 Elevated white blood cell count, unspecified; E03.9 Hypothyroidism, unspecified; Z91.018 Allergy to other foods; Z79.4 Long term (current) use of insulin; Z79.84 Long term (current) use of oral hypoglycemic drugs; E78.5 Hyperlipidemia, unspecified; I25.10 Atherosclerotic heart disease of native coronary artery without angina pectoris; I25.2 Old myocardial infarction; L97.529 Non-pressure chronic ulcer of other part of left foot with unspecified severity; E11.65 Type 2 diabetes mellitus with hyperglycemia; E11.69 Type 2 diabetes mellitus with other specified complication; Z79.899 Other long term (current) drug therapy; Z79.82 Long term (current) use of aspirin; Z79.01 Long term (current) use of anticoagulants; Z95.1 Presence of aortocoronary bypass graft; Z86.2 Personal history of diseases of the blood and blood-forming organs and certain disorders involving the immune mechanism; Z85.828 Personal history of other malignant neoplasm of skin; N40.0 Benign prostatic hyperplasia without lower urinary tract symptoms; I48.2 Chronic atrial fibrillation; E78.00 Pure hypercholesterolemia, unspecified; E66.9 Obesity, unspecified; Z68.33 Body mass index [BMI] 33.0-33.9, adult
CPT/HCPCS: 36415; 71010-TC; 76700-TC; 80048-TC; 80053-TC; 80061-TC; 80076-TC; 82962-TC; 83735-TC; 83880; 84100-TC; 84484-TC; 85025-TC; 85610-TC; 85730-TC; 87040-TC; 87070-TC; 87081-TC; 87086-TC; A4216; A4606; A6248; A6402; A6403; J0878; J1644; J1815; J1940; J3490; Z7610

== ENCOUNTER 2017-03-18 10:30 | Outpatient (CLI) | payer MEDICARE ==
[~2017-03-18 10:30] MED LIST changes: +DAPT500V2 IV; -DIPH25CA49 PO; -FAMO-131 PO; -GENT30OI2 TP; -LORA10TA7 PO; -METH4TAB16 PO
== END 2017-03-18 23:59 ==
LOC: WOU 10:30
PROVIDERS: ATTEND Podiatrist Foot & Ankle Surgery
DX: E11.621 Type 2 diabetes mellitus with foot ulcer (principal); E11.69 Type 2 diabetes mellitus with other specified complication; E11.42 Type 2 diabetes mellitus with diabetic polyneuropathy; L97.423 Non-pressure chronic ulcer of left heel and midfoot with necrosis of muscle; M86.672 Other chronic osteomyelitis, left ankle and foot; E11.51 Type 2 diabetes mellitus with diabetic peripheral angiopathy without gangrene; T87.89 Other complications of amputation stump; I77.1 Stricture of artery; T86.891 Other transplanted tissue failure; Z79.4 Long term (current) use of insulin; Z79.899 Other long term (current) drug therapy; L97.228 Non-pressure chronic ulcer of left calf with other specified severity
CPT/HCPCS: 87070; 87075; A6402; G0463

== ENCOUNTER 2017-03-25 10:15 | Outpatient (CLI) | payer MEDICARE | END 2017-03-25 23:59 | disposition home or self-care (01) | LOC: WOU 10:15 | PROVIDERS: ATTEND Podiatrist Foot & Ankle Surgery | DX: E11.621 Type 2 diabetes mellitus with foot ulcer (principal); L97.421 Non-pressure chronic ulcer of left heel and midfoot limited to breakdown of skin; E11.622 Type 2 diabetes mellitus with other skin ulcer; E11.51 Type 2 diabetes mellitus with diabetic peripheral angiopathy without gangrene; Z89.432 Acquired absence of left foot; E11.42 Type 2 diabetes mellitus with diabetic polyneuropathy; I70.302 Unspecified atherosclerosis of unspecified type of bypass graft(s) of the extremities, left leg; Z79.4 Long term (current) use of insulin; Z79.899 Other long term (current) drug therapy | CPT/HCPCS: A6253; A6402; G0463 ==